=== PATIENT | female | born 1975 ===

== ENCOUNTER 2021-08-07 12:20 | Inpatient (IN) | payer SELFPAY ==
[2021-08-07] MEDS ORDERED: MORPHINE 4 MG/1 ML INJ IV ONE (12:44)
[2021-08-07] MEDS ORDERED: ONDANSETRON 4 MG/2 ML INJ IV ONE (12:44)
[2021-08-07 13:58] LABS: Hematocrit 31.6 % (30.3-42.9); Hemoglobin 11.1 gm/dl (10.1-14.3); Mean Corpuscular HGB Conc 35 % (30-34); Mean Corpuscular Volume 103 fl (79-97); Platelet Count 522 K/mm3 (140-440); Red Blood Count 3.07 M/mm3 (3.65-5.03)
[2021-08-07 14:04] LABS: Red Cell Distribution Width 21.9 % (13.2-15.2)
[2021-08-07 14:09] LABS: INR 1.46 (0.87-1.13)
[2021-08-07 14:22] LABS: Alanine Aminotransferase 11 units/L (7-56); Albumin 2.8 g/dL (3.9-5); BUN/Creatinine Ratio 5; Bilirubin,Direct 4.6 mg/dL (0-0.2); Blood Urea Nitrogen < 1 mg/dL (7-17); Calcium 8.4 mg/dL (8.4-10.2); Hemolysis Index 1
[2021-08-07 14:47] LABS: Basophils % (Manual) 0 % (0.0-1.8); Eosinophils % (Manual) 0 % (0.0-4.3); Total Cells Counted 100
[2021-08-07 14:49] LABS: Target Cells 2+
[2021-08-07 14:50] LABS: Platelet Estimate Consistent w Auto; Schistocytes Few
--- NOTE | 2021-08-07 15:20 | Cat Scan Report ---
CT ABDOMEN AND PELVIS WITH CONTRAST HISTORY: pain. Alcohol abuse, jaundice, generalized abdominal pain COMPARISON: None. TECHNIQUE: CT images of the abdomen and pelvis were obtained following administration of intravenous contrast. All CT scans at this location are performed using CT dose reduction for ALARA by means of automated exposure control. CONTRAST: 100 ml of intravenous contrast administered. FINDINGS: Lungs/bones: Lung bases are clear. Degenerative changes in the spine and pelvis with no acute osseou s abnormality. Abdomen/pelvis: The liver is grossly enlarged and significantly heterogeneous in appearance with sev eral rounded slightly low attenuation masslike structures. The liver is also lobulated. There is mode rate volume ascites. The spleen is normal in size. The main portal vein is also normal in size. 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 The pancreas, adrenals, kidneys, and proximal GI tract appear unremarkable. The urinary bladder and reproductive organs are unremarkable with no acute colonic abnormality identi fied. Occasional diverticula are present without inflammation. There is congestive enteropathy involv ing the ascending colon. IMPRESSION: 1. Grossly abnormal appearance of the liver as outlined above. Differential considerations include no dular regeneration in the setting of cirrhosis versus underlying neoplastic change or even a very unu sual appearance of fatty infiltration. Ultimately tissue sampling may be required for definitive diag nosis. Moderate volume ascites is also present. 2. Porcelain gallbladder. Signer Name: Nabeel Loya MD Signed: 08/07/2021 3:16 PM Workstation Name: [id number]
[2021-08-07] MEDS ORDERED: PIPERACILLIN/TAZOBACTAM 3.375 3.375 GM/50 ML BAG IV ONE (15:32)
[2021-08-07 16:12] LABS: Bilirubin,Urine MOD (Negative); Blood,Urine SM (Negative); Color,Urine Amber (Yellow); Mucus,Urine 3+ /HPF
[2021-08-07 16:16] LABS: HCG Qualitative,Urine Negative (Negative)
[2021-08-07 16:23] LABS: Ictotest,Urine Positive (Negative)
--- NOTE | 2021-08-07 16:46 | History and Physical Report ---
History of Present Illness Chief complaint: My stomach hurts History of present illness: 45 YO Female with ETOH Dependence presents to ED for evaluation. PT reports "my stomach hurts". Patient states that over the past 2 weeks she had experienced abdominal pain and distention with persistent and worsening symptoms over the same timeframe. Patient states that her pain is 4/10, constant, diffuse, without exacerbating or alleviating factors. EMS was notified and upon arrival the patient was found to be in distress and subsequently transported to [facility] for further care and evaluation of the aforementioned symptoms. The patient was seen and evaluated in the emergency department. All lab and imaging studies reviewed. Patient found to have sepsis, alcoholic liver disease, obstructive jaundice, and hyponatremia. Patient admitted to telemetry and initiated on sepsis protocol. Surgical team consulted in ED. GI team consulted in ED. Patient denies fever, chills, chest pain, palpitation, productive cough, skin rash, recent contact, tremors, auditory/visual hallucinations, slurred speech, unilateral leg swelling, calf pain, individual/family history of DVT/PE/bleeding/blood clotting disorders, known exposure to COVID-19. No prior admission for review. No medication listed at time of admission for rec onciliation. Advanced care planning conducted in ED. Past History Past Medical History: other (See HPI) Past Surgical History: No surgical history, Other (Reviewed) Social history: , lives with family, alcohol abuse. denies: smoking, prescription drug abuse Family history: no significant family history Medications and Allergies Allergies Allergy/AdvReac Type Severity Reaction Status Date / Time No Known Allergies Allergy Verified 08/07/21 12:24 Review of Systems Constitutional: no weight loss, no weight gain, no fever, no sweats Ears, nose, mouth and throat: no ear pain, no ear discharge, no decreased hearing, no nose pain, no nasal congestion Breasts: no change in shape, no swelling Cardiovascular: no chest pain, no palpitations, no rapid/irregular heart beat, no edema, no syncope Respiratory: no cough, no cough with sputum, no shortness of breath Gastrointestinal: abdominal pain, nausea, no constipation, no change in bowel habits, no melena, no hematochezia, no loss of appetite Genitourinary Female: no pelvic pain, no flank pain, no dysuria, no urinary frequency, no urgency Rectal: no pain, no incontinence, no bleeding Musculoskeletal: no neck stiffness, no shooting arm pain, no low back pain, no shooting leg pain, no leg numbness/tingling Integumentary: no rash, no redness, no sores, no jaundice, no boils Neurological: no head injury, no transient paralysis, no weakness, no parathesias, no tingling Psychiatric: no anxiety, no change in sleep habits, no sleep disturbances, no hypersomnia, no change in libido Endocrine: no heat intolerance, no polyphagia, no excessive thirst, no polyuria, no nocturia Hematologic/Lymphatic: no easy bruising Allergic/Immunologic: no urticaria, no allergic rhinitis Exam - Constitutional Vitals: Temp Pulse Resp BP Pulse Ox 96 08/07/21 13:40 General appearance: Present: mild distress - EENT Eyes: Present: scleral icterus ENT: hearing intact, clear oral mucosa - Neck Neck: Present: supple, normal ROM - Respiratory Respiratory effort: normal Respiratory: bilateral: CTA - Cardiovascular Heart Sounds: Present: S1 & S2. Absent: rub, click - Extremities Extremities: pulses symmetrical, No edema Peripheral Pulses: within normal limits - Abdominal General gastrointestinal: Present: soft, tender, distended, normal bowel sounds. Absent: splenomegaly, mass Female genitourinary: Present: normal - Integumentary Integumentary: Present: clear, warm, dry - Musculoskeletal Musculoskeletal: generalized weakness - Psychiatric Psychiatric: appropriate mood/affect, intact judgment & insight - Neurologic Neurologic: CNII-XII intact, moves all extremities Results - Labs CBC & Chem 7: 08/07/21 13:32 08/07/21 13:32 Labs: Abnormal lab results 08/07/21 08/07/21 08/07/21 Range/Units 13:32 13:32 13:32 WBC 35.8 H (4.5-11.0) K/mm3 RBC 3.07 L (3.65-5.03) M/mm3 MCV 103 H (79-97) fl MCH 36 H (28-32) pg MCHC 35 H (30-34) % RDW 21.9 H (13.2-15.2) % Plt Count 522 H (140-440) K/mm3 Seg Neuts % (Manual) 97.0 H (40.0-70.0) % Lymphocytes % (Manual) 0 L (13.4-35.0) % Seg Neutrophils # Man 34.7 H (1.8-7.7) K/mm3 Lymphocytes # (Manual) 0.0 L (1.2-5.4) K/mm3 Monocytes # (Manual) 1.1 H (0.0-0.8) K/mm3 PT 19.5 H (12.2-14.9) Sec. INR 1.46 H (0.87-1.13) Sodium 130 L (137-145) mmol/L Chloride 92.7 L (98-107) mmol/L BUN < 1 L (7-17) mg/dL Creatinine 0.2 L (0.6-1.2) mg/dL Glucose 115 H (65-100) mg/dL Total Bilirubin 7.50 H (0.1-1.2) mg/dL Direct Bilirubin 4.6 H (0-0.2) mg/dL AST 113 H (5-40) units/L Alkaline Phosphatase 505 H (35-129) units/L Ammonia (25-60) umol/L Albumin 2.8 L (3.9-5) g/dL Amylase 17 L (27-131) units/L Ur Specific [place] (1.003-1.030) Urine WBC (Auto) (0.0-6.0) /HPF U Epithel Cells (Auto) (0-13.0) /HPF 08/07/21/ Range/Units 13:32 15:49 WBC (4.5-11.0) K/mm3 RBC (3.65-5.03) M/mm3 MCV (79-97) fl MCH (28-32) pg MCHC (30-34) % RDW (13.2-15.2) % Plt Count (140-440) K/mm3 Seg Neuts % (Manual) (40.0-70.0) % Lymphocytes % (Manual) (13.4-35.0) % Seg Neutrophils # Man (1.8-7.7) K/mm3 Lymphocytes # (Manual) (1.2-5.4) K/mm3 Monocytes # (Manual) (0.0-0.8) K/mm3 PT (12.2-14.9) Sec. INR (0.87-1.13) Sodium (137-145) mmol/L Chloride (98-107) mmol/L BUN (7-17) mg/dL Creatinine (0.6-1.2) mg/dL Glucose (65-100) mg/dL Total Bilirubin (0.1-1.2) mg/dL Direct Bilirubin (0-0.2) mg/dL AST (5-40) units/L Alkaline Phosphatase (35-129) units/L Ammonia 66.0 H (25-60) umol/L Albumin (3.9-5) g/dL Amylase (27-131) units/L Ur Specific [place] > 1.059 H (1.003-1.030) Urine WBC (Auto) 17.0 H (0.0-6.0) /HPF U Epithel Cells (Auto) 14.0 H (0-13.0) /HPF Assessment and Plan - Patient Problems (1) Sepsis Current Visit: Yes Status: Acute Plan to address problem: Sepsis protocol: IV antibiotic therapy, IV fluid resuscitation therapy, monitor urine output every shift, maintain mean arterial pressure greater than equal to 65, blood culture, serial lactic acid level. CBC, repeat CBC in a.m. (2) Hyponatremia syndrome Current Visit: Yes Status: Acute Plan to address problem: IV fluid resuscitation therapy, BMP, repeat BMP in a.m. (3) Alcoholic liver disease Current Visit: Yes Status: Acute Plan to address problem: Chronic, supportive care. GI team consulted in ED. (4) Porcelain gallbladder Current Visit: Yes Status: Acute Plan to address problem: Surgery team consulted in ED. Surgical intervention as per surgical team. 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 (5) DVT prophylaxis Current Visit: Yes Status: Acute Plan to address problem: SCD to bilateral lower extremities while in bed (6) Advance care planning Current Visit: Yes Status: Acute Plan to address problem: Disease education data, care plan discussed, diagnoses discussed, prognosis discussed, patient is full code. Patient knowledges understanding agreement with care plan, +30 minutes. (7) Preventative health care Current Visit: Yes Status: Acute Plan to address problem: Patient counseled regarding balanced diet, alcohol cessation, outpatient follow- up with primary care physician for all age and risk factor appropriate screening tests. Patient instructed follow-up with Alcoholics Anonymous at discharge. +30 minutes.
--- NOTE | 2021-08-07 16:52 | Emergency Department Report ---
ED Abdominal Pain HPI - General Chief Complaint: Abdominal Pain Stated Complaint: JAUNDICE,ABD PAIN/DISTENTION Time Seen by Provider: 08/07/21 12:47 Source: patient, EMS Mode of arrival: Stretcher Limitations: Language Barrier - History of Present Illness Initial Comments: PT ARRIVING FROM HOME, FOR JAUNDICE & ABD PAIN/DISTENTION X2 WEEKS. HX ALCOHOL ABUSE. [facility]. 20G L AC. pt is chronically alcoholic , stopped rinking 2 weeks ago, started having jaundice a week ago with abdominal pain MD Complaint: abdominal pain -: days(s) Location: diffuse Severity scale (0 -10): 4 Improves With: nothing Worsens With: nothing Associated Symptoms: nausea, vomiting - Related Data Allergies Allergy/AdvReac Type Severity Reaction Status Date / Time No Known Allergies Allergy Verified 08/07/21 12:24 ED Review of Systems ROS: Stated complaint: JAUNDICE,ABD PAIN/DISTENTION Other details as noted in HPI Comment: language b Constitutional: denies: chills, fever Eyes: denies: eye pain, eye discharge, vision change ENT: denies: ear pain, throat pain Respiratory: denies: cough, shortness of breath, wheezing Cardiovascular: denies: chest pain, palpitations Endocrine: no symptoms reported Gastrointestinal: denies: abdominal pain, nausea, diarrhea Genitourinary: denies: urgency, dysuria, discharge Musculoskeletal: denies: back pain, joint swelling, arthralgia Skin: denies: rash, lesions Neurological: denies: headache, weakness, paresthesias Psychiatric: denies: anxiety, depression Hematological/Lymphatic: denies: easy bleeding, easy bruising ED Past Medical Hx - Past Medical History Previous Medical History?: No - Surgical History Past Surgical History?: No - Social History Smoking Status: Never Smoker Substance Use Type: None ED Physical Exam - General Limitations: Language Barrier General appearance: alert, in distress - Head Head exam: Present: atraumatic, normocephalic - Eye Eye exam: Present: other (jaundice ) - ENT ENT exam: Present: mucous membranes moist - Neck Neck exam: Present: normal inspection - Respiratory Respiratory exam: Present: normal lung sounds bilaterally. Absent: respiratory distress - Cardiovascular Cardiovascular Exam: Present: normal rhythm, tachycardia. Absent: systolic m urmur, diastolic murmur, rubs, gallop - GI/Abdominal GI/Abdominal exam: Present: distended, tenderness, organomegaly, mass - Expanded GI/Abdominal Exam Expanded GI/Abdominal exam: Present: ascites - Extremities Exam Extremities exam: Present: normal inspection - Back Exam Back exam: Present: normal inspection - Neurological Exam Neurological exam: Present: alert, oriented X3 - Psychiatric Psychiatric exam: Present: normal affect, normal mood - Skin Skin exam: Present: warm, dry, intact, normal color. Absent: rash ED Course Vital Signs 08/07/21 13:40 O2 Sat by Pulse 96 Oximetry ED Medical Decision Making - Lab Data Result diagrams: 08/07/21 13:32 08/07/21 13:32 - Radiology Data Radiology results: report reviewed, image reviewed - Medical Decision Making work up showed : - leukocytosis : lactic and blood culture, abx given - Jaundice : seems like direct obstructive or mixed , spoke with GI - Porcalein gall bladder : spoke with dr Zenaida brower Critical care attestation.: If time is entered above; I have spent that time in minutes in the direct care of this critically ill patient, excluding procedure time. ED Disposition Clinical Impression: Alcoholic liver disease, Jaundice, Abdominal pain, Leukocytosis, Porcelain gallbladder, Liver cirrhosis, UTI (urinary tract infection) Disposition: ADMITTED INPATIENT Is pt being admited?: Yes Does the pt Need Aspirin: No Condition: Fair Instructions: Abdominal Pain (ED) Referrals: PRIMARY CARE, [Primary Care Provider] - 3-5 Days
[2021-08-07] MEDS ORDERED: ALBUTEROL 2.5 MG/3 ML NEBU IH PRN (17:04)
[2021-08-07] MEDS ORDERED: ACETAMINOPHEN 325 MG TAB PO PRN (17:04)
[2021-08-07] MEDS ORDERED: ONDANSETRON 4 MG/2 ML INJ IV PRN (17:04)
[2021-08-07] MEDS ORDERED: SODIUM CHLORIDE 0.9% 1000 ML IV SOLN IV ONE (17:04)
[2021-08-07] MEDS ORDERED: IBUPROFEN 600 MG TAB PO PRN (17:04)
[2021-08-07] MEDS ORDERED: DEXTROSE 50% IN WATER (25GM) 50 ML SYRINGE IV PRN (17:10)
[2021-08-07] MEDS: CEFEPIME/NS 2 GM/100 ML 2 GM/100 ML BAG IV SCH (17:32)
--- NOTE | 2021-08-07 18:50 | Consultation ---
History of Present Illness Consult date: 08/07/21 Reason for consult: abdominal pain Chief complaint: abd pain - History of present illness History of present illness: 45 yo F with no PMHx who presents to ER with 1 week of worsening epigastric abdominal pain, abdominal distension and firmness, jaundice. Patient states that the abd pain is sharp and intermittent, localized to the epigastrum and upper abdomen. No alleviating or exacerbating factors. She has never had pain like this before. She also noticed that her abdomen was more distended. In addition, her daughter noted that her eyes were becoming yellow. Patient states she has been urinating and having BMs but it is not as much as usual and the urine is dark. No n/v. No f/c. She was drinking etoh heavily for many months and states she stopped about 2 weeks ago. Pt thought her abdominal pain was related to lifting heavy items at work. Past History Past Medical History: No medical history Past Surgical History: Social history: alcohol abuse Family history: no significant family history Medications and Allergies Allergies Allergy/AdvReac Type Severity Reaction Status Date / Time No Known Allergies Allergy Verified 08/07/21 12:24 Active Meds: Active Medications Acetaminophen (Acetaminophen 325 Mg Tab) 650 mg PO Q6H PRN PRN Reason: Pain, Mild (1-3) Albuterol (Albuterol 2.5 Mg/3 Ml Nebu) 2.5 mg IH Q4HRT PRN PRN Reason: Shortness Of Breath Dextrose (Dextrose 50% In Water (25gm) 50 Ml Syringe) 50 ml IV Q30MIN PRN; Protocol PRN Reason: Hypoglycemia Hydromorphone HCl (Hydromorphone 0.5 Mg/0.5 Ml Inj) 0.25 mg IV Q4H PRN PRN Reason: Pain, Moderate (4-6) Hydromorphone HCl (Hydromorphone 0.5 Mg/0.5 Ml Inj) 0.5 mg IV Q8H PRN PRN Reason: Pain , Severe (7-10) Cefepime HCl (Cefepime/Ns 2 Gm/100 Ml) 2 gm in 100 mls @ 200 mls/hr IV Q8H AILYN; Protocol Last Admin: 08/07/21 17:32 Dose: 200 mls/hr Ibuprofen (Ibuprofen 600 Mg Tab) 600 mg PO Q6H PRN PRN Reason: Pain, Mild (1-3) Insulin Human Regular (Insulin Regular, Human 100 Units/1 Ml) 0 units SUB-Q ACHS AILYN; Protocol Ondansetron HCl (Ondansetron 4 Mg/2 Ml Inj) 4 mg IV Q8H PRN PRN Reason: Nausea And Vomiting Oxycodone/Acetaminophen (Oxycodone /Acetaminophen 5-325mg Tab) 1 tab PO Q6H PRN PRN Reason: Pain, Moderate (4-6) Sodium Chloride (Sodium Chloride 0.9% 10 Ml Flush Syringe) 10 ml IV BID AILYN Sodium Chloride (Sodium Chloride 0.9% 10 Ml Flush Syringe) 10 ml IV PRN PRN PRN Reason: LINE FLUSH Exam Vital Signs Pulse Ox 96 08/07/21 13:40 Narrative exam: Gen: AAOx3. NAD ENT: +scleral icterus CV: S1, S2+ Resp: even and unlabored Abd: soft, distended, epigastric TTP. No r/r/g Ext: no c/c/e Results - Labs 08/07/21 13:32 08/07/21 13:32 Abnormal lab results 08/07/21 08/07/21 08/07/21 Range/Units 13:32 13:32 13:32 WBC 35.8 H (4.5-11.0) K/mm3 RBC 3.07 L (3.65-5.03) M/mm3 MCV 103 H (79-97) fl MCH 36 H (28-32) pg MCHC 35 H (30-34) % RDW 21.9 H (13.2-15.2) % Plt Count 522 H (140-440) K/mm3 Seg Neuts % (Manual) 97.0 H (40.0-70.0) % Lymphocytes % (Manual) 0 L (13.4-35.0) % Seg Neutrophils # Man 34.7 H (1.8-7.7) K/mm3 Lymphocytes # (Manual) 0.0 L (1.2-5.4) K/mm3 Monocytes # (Manual) 1.1 H (0.0-0.8) K/mm3 PT 19.5 H (12.2-14.9) Sec. INR 1.46 H (0.87-1.13) Sodium 130 L (137-145) mmol/L Chloride 92.7 L (98-107) mmol/L BUN < 1 L (7-17) mg/dL Creatinine 0.2 L (0.6-1.2) mg/dL Glucose 115 H (65-100) mg/dL Total Bilirubin 7.50 H (0.1-1.2) mg/dL Direct Bilirubin 4.6 H (0-0.2) mg/dL AST 113 H (5-40) units/L Alkaline Phosphatase 505 H (35-129) units/L Ammonia (25-60) umol/L Albumin 2.8 L (3.9-5) g/dL Amylase 17 L (27-131) units/L Ur Specific [place] (1.003-1.030) Urine WBC (Auto) (0.0-6.0) /HPF U Epithel Cells (Auto) (0-13.0) /HPF 08/07/21 08/07/21 Range/Units 13:32 15:49 WBC (4.5-11.0) K/mm3 RBC (3.65-5.03) M/mm3 MCV (79-97) fl MCH (28-32) pg MCHC (30-34) % RDW (13.2-15.2) % Plt Count (140-440) K/mm3 Seg Neuts % (Manual) (40.0-70.0) % Lymphocytes % (Manual) (13.4-35.0) % Seg Neutrophils # Man (1.8-7.7) K/mm3 Lymphocytes # (Manual) (1.2-5.4) K/mm3 Monocytes # (Manual) (0.0-0.8) K/mm3 PT (12.2-14.9) Sec. INR (0.87-1.13) Sodium (137-145) mmol/L Chloride (98-107) mmol/L BUN (7-17) mg/dL Creatinine (0.6-1.2) mg/dL Glucose (65-100) mg/dL Total Bilirubin (0.1-1.2) mg/dL Direct Bilirubin (0-0.2) mg/dL AST (5-40) units/L Alkaline Phosphatase (35-129) units/L Ammonia 66.0 H (25-60) umol/L Albumin (3.9-5) g/dL Amylase (27-131) units/L Ur Specific [place] > 1.059 H (1.003-1.030) Urine WBC (Auto) 17.0 H (0.0-6.0) /HPF U Epithel Cells (Auto) 14.0 H (0-13.0) /HPF Diabetes panel 08/07/21 Range/Units 13:32 Sodium 130 L (137-145) mmol/L Potassium 3.6 (3.6-5.0) mmol/L Chloride 92.7 L (98-107) mmol/L Carbon Dioxide 26 (22-30) mmol/L BUN < 1 L (7-17) mg/dL Creatinine 0.2 L (0.6-1.2) mg/dL Glucose 115 H (65-100) mg/dL Calcium 8.4 (8.4-10.2) mg/dL AST 113 H (5-40) units/L ALT 11 (7-56) units/L Alkaline Phosphatase 505 H (35-129) units/L Total Protein 7.2 (6.3-8.2) g/dL Albumin 2.8 L (3.9-5) g/dL Calcium panel 08/07/21 Range/Units 13:32 Calcium 8.4 (8.4-10.2) mg/dL Albumin 2.8 L (3.9-5) g/dL Pituitary panel 08/07/21 Range/Units 13:32 Sodium 130 L (137-145) mmol/L Potassium 3.6 (3.6-5.0) mmol/L Chloride 92.7 L (98-107) mmol/L Carbon Dioxide 26 (22-30) mmol/L BUN < 1 L (7-17) mg/dL Creatinine 0.2 L (0.6-1.2) mg/dL Glucose 115 H (65-100) mg/dL Calcium 8.4 (8.4-10.2) mg/dL Adrenal panel 08/07/21 Range/Units 13:32 Sodium 130 L (137-145) mmol/L Potassium 3.6 (3.6-5.0) mmol/L Chloride 92.7 L (98-107) mmol/L Carbon Dioxide 26 (22-30) mmol/L BUN < 1 L (7-17) mg/dL Creatinine 0.2 L (0.6-1.2) mg/dL Glucose 115 H (65-100) mg/dL Calcium 8.4 (8.4-10.2) mg/dL Total Bilirubin 7.50 H (0.1-1.2) mg/dL AST 113 H (5-40) units/L ALT 11 (7-56) units/L Alkaline Phosphatase 505 H (35-129) units/L Total Protein 7.2 (6.3-8.2) g/dL Albumin 2.8 L (3.9-5) g/dL - Imaging CT scan - abdomen: report reviewed, image reviewed CT scan - pelvis: report reviewed, image reviewed Assessment and Plan 45 yo F with 1. porcelain gallbladder 2. abnormal liver on CT scan 3. ascites 4. hyperbilirubinemia, transaminitis 5. jaundice 6. recent hx of etoh abuse Ct A/P images and report independently reviewed Plan: 1. CLD, NPO P MN tonight 2. Obtain MRI abd/MRCP to further evaluate liver and bile ducts 3. tumor markers ordered - CA19-9, CEA 4. CMP, CBC in am 5. empiric abx 6. GI consulted by ER physician 7. No acute surgical intervention at this time. Further recs pending results of above. Thank you, please call with questions.
[2021-08-07] MEDS: HYDROmorphone 0.5 MG/0.5 ML INJ IV PRN (21:51)
[2021-08-07] MEDS: INSULIN REGULAR, HUMAN 100 UNITS/1 ML SUB-Q SCH (23:29)
[2021-08-08] MEDS: CEFEPIME/NS 2 GM/100 ML 2 GM/100 ML BAG IV SCH ×3 (02:04→18:00)
[2021-08-08 05:14] LABS: Hematocrit 32.1 % (30.3-42.9); Hemoglobin 10.4 gm/dl (10.1-14.3); Mean Corpuscular HGB Conc 32 % (30-34); Mean Corpuscular Volume 106 fl (79-97); Platelet Count 476 K/mm3 (140-440); Red Blood Count 3.04 M/mm3 (3.65-5.03)
[2021-08-08 05:18] LABS: Red Cell Distribution Width 21.7 % (13.2-15.2)
[2021-08-08 05:33] LABS: Alanine Aminotransferase 10 units/L (7-56); Albumin 2.6 g/dL (3.9-5); BUN/Creatinine Ratio 10; Blood Urea Nitrogen 2 mg/dL (7-17); Calcium 8.2 mg/dL (8.4-10.2); Hemolysis Index 0
[2021-08-08 07:13] LABS: Anisocytosis 1+; Basophils % (Manual) 0 % (0.0-1.8); Platelet Estimate Consistent w Auto; Total Cells Counted 100
[2021-08-08] MEDS: INSULIN REGULAR, HUMAN 100 UNITS/1 ML SUB-Q SCH ×4 (07:37→21:46)
[2021-08-08] MEDS: HYDROmorphone 0.5 MG/0.5 ML INJ IV PRN ×2 (09:15→14:35)
--- NOTE | 2021-08-08 11:04 | Magnetic Resonance Report ---
MRI ABDOMEN WITHOUT AND WITH CONTRAST INDICATION / CLINICAL INFORMATION: liver lesions Patient had difficulty following breathing instructi ons, best possible study.. TECHNIQUE: Multiplanar, multisequence series were obtained through the abdomen. Pre and postcontrast sequences were obtained. 20 mL MultiHance injected IV. COMPARISON: CT dated 08/07/21. FINDINGS: LOWER CHEST: No significant abnormality. LIVER: Liver is markedly enlarged and heterogeneous. There is diffuse, heterogeneous signal dropout i n the liver on out of phase images. No definite focal solid lesion. Liver is enlarged measuring 24.9 cm in craniocaudad dimension. Liver has a mildly nodular surface. GALLBLADDER: There is low signal of the gallbladder on all sequences corresponding to gallstones and calcified wall noted CT. BILE DUCTS: No significant abnormality. PANCREAS: No significant abnormality. SPLEEN: Spleen is normal size. ADRENALS: No significant abnormality. RIGHT KIDNEY / URETER: No significant abnormality. LEFT KIDNEY / URETER: No significant abnormality. STOMACH / VISUALIZED BOWEL: No significant abnormality. PERITONEUM: Moderate to large amount of free fluid in the abdomen unchanged since prior study. No mabel e air. No fluid collection. LYMPH NODES: No significant adenopathy. AORTA / ARTERIES: No significant abnormality. IVC / VEINS: No significant abnormality. ADDITIONAL FINDINGS: None. SKELETAL SYSTEM: No significant abnormality. IMPRESSION: 1. Hepatomegaly with heterogeneous hepatic steatosis and probable hepatic cirrhosis. No definite foca l or diffuse hepatic neoplastic process. 2. Moderate to large amount of ascites. 3. Cholelithiasis with porcelain gallbladder. Signer Name: Pablito Kirk MD Signed: 08/08/2021 11:00 AM Workstation Name: [id number]
--- NOTE | 2021-08-08 14:05 | Progress Note ---
Assessment and Plan Assessment and plan: #Sepsisimproving WBC 35.8--> 29.7 Pending blood cultures. Unremarkable urinalysis. Continue Rocephin 2 g every 8 hours. Infectious disease consulted; pending recs. Unremarkable lactic acid. Continue to trend CBC daily. #Alcoholic liver disease #Possible hepatic cirrhosis #Hyperbilirubinemia #Elevated transaminasesimproving #Elevated ammonia #Moderate protein caloric malnutrition CT abdomen and pelvis with contrast (08/07/2021) revealing "liver is grossly enlarged and significantly heterogeneous in appearance with several rounded slightly low-attenuation masslike structures. The liver is also lobulated. There is moderate volume ascites. The spleen is normal in size. Main portal vein is also normal in size. Differential considerations include nodular regeneration in the setting of cirrhosis versus underlying neoplastic change or even a very unusual appearance of fatty infiltration. Ultimately tissue sampling may be required for definitive diagnosis. Porcelain gallbladder." MRI abdomen with and without contrast (08/08/2021) revealing "hepatomegaly with heterogeneous hepatic steatosis and probable hepatic cirrhosis. No definite focal diffuse hepatic neoplastic process. Moderate to large amount of ascites. Cholelithiasis with porcelain gallbladder." Total bilirubin 7.5, direct bilirubin 4.6, Ammonia 66, Albumin 2.6 AST 113--> 104 Alkaline phosphatase 505--> 418 General surgery consulted; appreciate recs Gastroenterology consulted; pending recs Ordering paracentesis with lab studies. Continue to trend CMP. #Hyponatremia Sodium 130 Likely secondary to volume overload in the setting of possible cirrhosis with ascites. Continue to monitor. 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 No clinical indication to undergo surgical removal at this point in time. #Coagulopathy INR 1.46 Likely in the setting of possible hepatic cirrhosis. Continue to monitor. #Hypocalcemia Calcium 8.2 Repleted. Continue to monitor. #Alcohol dependence - Counseled patient on the importance of ETOH cessation. Assess patient's current ETOH consumption. Assisted with trying to arrange resources for patient to adequately work towards ETOH cessation. Patient expresses understanding. -Time: +15 mins #Advanced care planning -Disease education conducted, care plan discussed, diagnoses discussed, prognosis discussed, and patient acknowledges understanding with care plan -Time: +30 min Disposition Plan: Continue medical management Total Time Spent with Patient (Minutes): 45 minutes History Interval history: No acute events overnight. Hospitalist Physical - Constitutional Vitals: Temp Pulse Resp BP Pulse Ox 98.4 F 103 H 16 113/66 99 08/08/21 04:22 08/08/21 04:22 08/08/21 04:22 08/08/21 04:22 08/08/21 04:22 General appearance: Present: no acute distress, well-nourished - EENT Eyes: Present: PERRL, EOM intact ENT: hearing intact, clear oral mucosa, dentition normal - Neck Neck: Present: supple, normal ROM - Respiratory Respiratory effort: normal Respiratory: bilateral: CTA - Cardiovascular Rhythm: regular Heart Sounds: Present: S1 & S2 - Extremities Extremities: no ischemia, pulses intact, pulses symmetrical, No edema, normal te mperature, normal color, Full ROM Peripheral Pulses: within normal limits - Abdominal General gastrointestinal: soft, tender (Epigastric and right upper quadrant tenderness), distended (Distended with moderate ascites), normal bowel sounds Localized gastrointestinal: tender: RUQ, epigastric periumbilical - Integumentary Integumentary: Present: clear, warm, dry - Psychiatric Psychiatric: appropriate mood/affect, intact judgment & insight, memory intact, cooperative - Neurologic Neurologic: CNII-XII intact, moves all extremities - Allied Health Allied health notes reviewed: nursing Results - Labs CBC & Chem 7: 08/08/21 04:32 08/08/21 04:32 Labs: Laboratory Last Values WBC 29.7 K/mm3 (4.5-11.0) H 08/08/21 04:32 RBC 3.04 M/mm3 (3.65-5.03) L 08/08/21 04:32 Hgb 10.4 gm/dl (10.1-14.3) 08/08/21 04:32 Hct 32.1 % (30.3-42.9) 08/08/21 04:32 MCV 106 fl (79-97) H 08/08/21 04:32 MCH 34 pg (28-32) H 08/08/21 04:32 MCHC 32 % (30-34) 08/08/21 04:32 RDW 21.7 % (13.2-15.2) H 08/08/21 04:32 Plt Count 476 K/mm3 (140-440) H 08/08/21 04:32 Add Manual Diff Complete 08/08/21 04:32 Total Counted 100 08/08/21 04:32 Seg Neutrophils % Axle Inspector 08/07/21 13:32 Seg Neuts % (Manual) 94.0 % (40.0-70.0) H 08/08/21 04:32 Band Neutrophils % 0 % 08/08/21 04:32 Lymphocytes % (Manual) 3.0 % (13.4-35.0) L 08/08/21 04:32 Reactive Lymphs % (Man) 0 % 08/08/21 04:32 Monocytes % (Manual) 2.0 % (0.0-7.3) 08/08/21 04:32 Eosinophils % (Manual) 1.0 % (0.0-4.3) 08/08/21 04:32 Basophils % (Manual) 0 % (0.0-1.8) 08/08/21 04:32 Metamyelocytes % 0 % 08/08/21 04:32 Myelocytes % 0 % 08/08/21 04:32 Promyelocytes % 0 % 08/08/21 04:32 Blast Cells % 0 % 08/08/21 04:32 Nucleated RBC % Not Reportable 08/08/21 04:32 Seg Neutrophils # Man 27.9 K/mm3 (1.8-7.7) H 08/08/21 04:32 Band Neutrophils # 0.0 K/mm3 08/08/21 04:32 Lymphocytes # (Manual) 0.9 K/mm3 (1.2-5.4) L 08/08/21 04:32 Abs React Lymphs (Man) 0.0 K/mm3 08/08/21 04:32 Monocytes # (Manual) 0.6 K/mm3 (0.0-0.8) 08/08/21 04:32 Eosinophils # (Manual) 0.3 K/mm3 (0.0-0.4) 08/08/21 04:32 Basophils # (Manual) 0.0 K/mm3 (0.0-0.1) 08/08/21 04:32 Metamyelocytes # 0.0 K/mm3 08/08/21 04:32 Myelocytes # 0.0 K/mm3 08/08/21 04:32 Promyelocytes # 0.0 K/mm3 08/08/21 04:32 Blast Cells # 0.0 K/mm3 08/08/21 04:32 WBC Morphology Not Reportable 08/08/21 04:32 Hypersegmented Neuts Not Reportable 08/08/21 04:32 Hyposegmented Neuts Not Reportable 08/08/21 04:32 Hypogranular Neuts Not Reportable 08/08/21 04:32 Smudge Cells Not Reportable 08/08/21 04:32 Toxic Granulation Not Reportable 08/08/21 04:32 Toxic Vacuolation Not Reportable 08/08/21 04:32 Dohle Bodies Not Reportable 08/08/21 04:32 Pelger-Huet Anomaly Not Reportable 08/08/21 04:32 Duncan Rods Not Reportable 08/08/21 04:32 Platelet Estimate Consistent w auto 08/08/21 04:32 Clumped Platelets Not Reportable 08/08/21 04:32 Plt Clumps, EDTA Not Reportable 08/08/21 04:32 Large Platelets Not Reportable 08/08/21 04:32 Giant Platelets Not Reportable 08/08/21 04:32 Platelet Satelliting Not Reportable 08/08/21 04:32 Plt Morphology Comment Not Reportable 08/08/21 04:32 RBC Morphology Not Reportable 08/08/21 04:32 Dimorphic RBCs Not Reportable 08/08/21 04:32 Polychromasia Not Reportable 08/08/21 04:32 Hypochromasia Not Reportable 08/08/21 04:32 Poikilocytosis Not Reportable 08/08/21 04:32 Anisocytosis 1+ 08/08/21 04:32 Microcytosis Not Reportable 08/08/21 04:32 Macrocytosis Not Reportable 08/08/21 04:32 Spherocytes Not Reportable 08/08/21 04:32 Pappenheimer Bodies Not Reportable 08/08/21 04:32 Sickle Cells Not Reportable 08/08/21 04:32 Target Cells Not Reportable 08/08/21 04:32 Tear Drop Cells Not Reportable 08/08/21 04:32 Ovalocytes Not Reportable 08/08/21 04:32 Helmet Cells Not Reportable 08/08/21 04:32 Silva-Custer Bodies Not Reportable 08/08/21 04:32 [place] Rings Not Reportable 08/08/21 04:32 [place] Cells Not Reportable 08/08/21 04:32 Bite Cells Not Reportable 08/08/21 04:32 Crenated Cell Not Reportable 08/08/21 04:32 Elliptocytes Not Reportable 08/08/21 04:32 Acanthocytes (Spur) Not Reportable 08/08/21 04:32 Rouleaux Not Reportable 08/08/21 04:32 Hemoglobin C Crystals Not Reportable 08/08/21 04:32 Schistocytes Not Reportable 08/08/21 04:32 Malaria parasites Not Reportable 08/08/21 04:32 [place] Bodies Not Reportable 08/08/21 04:32 Hem Pathologist Commnt No 08/08/21 04:32 PT 19.5 Sec. (12.2-14.9) H 08/07/21 13:32 INR 1.46 (0.87-1.13) H 08/07/21 13:32 Sodium 130 mmol/L (137-145) L 08/08/21 04:32 Potassium 3.6 mmol/L (3.6-5.0) 08/08/21 04:32 Chloride 95.2 mmol/L (98-107) L 08/08/21 04:32 Carbon Dioxide 25 mmol/L (22-30) 08/08/21 04:32 Anion Gap 13 mmol/L 08/08/21 04:32 BUN 2 mg/dL (7-17) L 08/08/21 04:32 Creatinine 0.2 mg/dL (0.6-1.2) L 08/08/21 04:32 Estimated GFR > 60 ml/min 08/08/21 04:32 BUN/Creatinine Ratio 10 % 08/08/21 04:32 Glucose 91 mg/dL (65-100) 08/08/21 04:32 POC Glucose 97 mg/dL (70-105) 08/07/21 22:16 Lactic Acid 1.80 mmol/L (0.7-2.0) 08/07/21 22:28 Calcium 8.2 mg/dL (8.4-10.2) L 08/08/21 04:32 Total Bilirubin 8.00 mg/dL (0.1-1.2) H 08/08/21 04:32 Direct Bilirubin 4.6 mg/dL (0-0.2) H 08/07/21 13:32 Indirect Bilirubin 2.9 mg/dL 08/07/21 13:32 AST 104 units/L (5-40) H 08/08/21 04:32 ALT 10 units/L (7-56) 08/08/21 04:32 Alkaline Phosphatase 418 units/L (35-129) H 08/08/21 04:32 Ammonia 66.0 umol/L (25-60) H 08/07/21 13:32 Total Protein 6.3 g/dL (6.3-8.2) 08/08/21 04:32 Albumin 2.6 g/dL (3.9-5) L 08/08/21 04:32 Albumin/Globulin Ratio 0.7 % 08/08/21 04:32 Amylase 17 units/L (27-131) L 08/07/21 13:32 Lipase 13 units/L (13-60) 08/07/21 13:32 HCG, Quant < 2 mIU/mL (0-4) 08/07/21 13:32 Urine Color Nancy (Yellow) 08/07/21 15:49 Urine Turbidity Clear (Clear) 08/07/21 15:49 Urine pH 5.0 (5.0-7.0) 08/07/21 15:49 Ur Specific [place] > 1.059 (1.003-1.030) H 08/07/21 15:49 Urine Protein 30 mg/dl mg/dL (Negative) 08/07/21 15:49 Urine Glucose (UA) 50 mg/dL (Negative) 08/07/21 15:49 Urine Ketones Neg mg/dL (Negative) 08/07/21 15:49 Urine Blood Sm (Negative) 08/07/21 15:49 Urine Nitrite Neg (Negative) 08/07/21 15:49 Urine Bilirubin Mod (Negative) 08/07/21 15:49 Urine Ictotest Positive (Negative) 08/07/21 15:49 Urine Urobilinogen 4.0 mg/dL (<2.0) 08/07/21 15:49 Ur Leukocyte Esterase Neg (Negative) 08/07/21 15:49 Urine WBC (Auto) 17.0 /HPF (0.0-6.0) H 08/07/21 15:49 Urine RBC (Auto) 17.0 /HPF (0.0-6.0) 08/07/21 15:49 U Epithel Cells (Auto) 14.0 /HPF (0-13.0) H 08/07/21 15:49 Urine Mucus 3+ /HPF 08/07/21 15:49 Urine HCG, Qual Negative (Negative) 08/07/21 15:49 Plasma/Serum Alcohol < 0.01 % (0-0.07) 08/07/21 14:36 Blood Type A POSITIVE 08/07/21 20:14 Antibody Screen Negative 08/07/21 20:14 Microbiology: Microbiology 08/07/21 14:36 Peripheral/Venous Blood Culture - Preliminary Culture in Progress 08/07/21 14:36 Peripheral/Venous Blood Culture - Preliminary Culture in Progress Streeter/IV: Voiding Method Toilet Active Medications - Current Medications Current Medications: Generic Name Dose Route Start Last Admin Trade Name Freq PRN Reason Stop Dose Admin Acetaminophen 650 mg 08/07/21 17:04 08/07/21 22:20 Acetaminophen 325 Mg Tab PO 650 mg Q6H PRN Administration Pain, Mild (1-3) Albuterol 2.5 mg 08/07/21 17:04 Albuterol 2.5 Mg/3 Ml Nebu IH Q4HRT PRN Shortness Of Breath Dextrose 50 ml 08/07/21 17:10 Dextrose 50% In Water (25gm) 50 Ml Syringe IV Q30MIN PRN Hypoglycemia Protocol Hydromorphone HCl 0.25 mg 08/07/21 17:04 08/07/21 21:51 Hydromorphone 0.5 Mg/0.5 Ml Inj IV 0.25 mg Q4H PRN Administration Pain, Moderate (4-6) Hydromorphone HCl 0.5 mg 08/07/21 17:04 08/08/21 09:15 Hydromorphone 0.5 Mg/0.5 Ml Inj IV 0.5 mg Q8H PRN Administration Pain , Severe (7-10) Cefepime HCl 2 gm in 100 mls @ 200 mls/hr 08/07/21 18:00 08/08/21 05:08 Cefepime/Ns 2 Gm/100 Ml IV Infused Q8H AILYN Infusion Protocol Ibuprofen 600 mg 08/07/21 17:04 Ibuprofen 600 Mg Tab PO Q6H PRN Pain, Mild (1-3) Insulin Human Regular 0 units 08/07/21 22:00 08/07/21 23:29 Insulin Regular, Human 100 Units/1 Ml SUB-Q Not Given ACHS [facility] Protocol Ondansetron HCl 4 mg 08/07/21 17:04 Ondansetron 4 Mg/2 Ml Inj IV Q8H PRN Nausea And Vomiting Oxycodone/Acetaminophen 1 tab 08/07/21 17:04 Oxycodone /Acetaminophen 5-325mg Tab PO Q6H PRN Pain, Moderate (4-6) Sodium Chloride 10 ml 08/07/21 22:00 08/07/21 22:05 Sodium Chloride 0.9% 10 Ml Flush Syringe IV 10 ml BID AILYN Administration Sodium Chloride 10 ml 08/07/21 17:04 Sodium Chloride 0.9% 10 Ml Flush Syringe IV PRN PRN LINE FLUSH
--- NOTE | 2021-08-08 17:07 | Event Note ---
Date: 08/08/21 Full GI consult dictated - probable alcohol abuse with ascites and imaging suspicion for cirrhosis - also noted signs Porcelain GB - agree with emperic antibiotics - awaiting LVP and results - consider low dose diuretics after lvp - await surgery input regarding porcelain gb - will follow
[2021-08-09] MEDS: CEFEPIME/NS 2 GM/100 ML 2 GM/100 ML BAG IV SCH ×3 (01:56→18:42)
--- NOTE | 2021-08-09 04:18 | Consultation ---
DATE OF CONSULTATION: 08/08/2021 REFERRING PHYSICIAN: Fatimah Pereira MD INDICATIONS: 1. Cirrhosis. 2. Abdominal pain. HISTORY OF PRESENT ILLNESS: The patient is a 45-year-old female with history of chronic alcohol abuse, now presents for abdominal pain and distention. The patient reports that she has been having this abdominal pain with distention, which has been ongoing for the last 3 to 4 weeks. She does report a history of chronic alcohol abuse. The patient denies any nausea, vomiting or hematemesis. She denies any bright red blood per rectum. She does report some leg swelling. The patient came to the Emergency Room for further evaluation and was admitted and GI consulted to aid in management. No other specific complaints. PAST MEDICAL HISTORY: Alcohol abuse. MEDICATIONS: Reviewed and updated in chart. ALLERGIES: No known drug allergies. SOCIAL HISTORY: Reports alcohol abuse. Denies smoking or prescription drug abuse. FAMILY HISTORY: Negative for colon cancer, IBD, or liver disease. REVIEW OF SYSTEMS: GENERAL: Reports some weakness. HEENT: No visual complaints or tinnitus. PULMONARY: Reports some shortness of breath. CARDIOVASCULAR: Denies chest pain. GASTROINTESTINAL: Reports abdominal distention. All points of 13-point review of system otherwise negative. PHYSICAL EXAMINATION: VITAL SIGNS: Temperature of 98.4, pulse 100, respirations 18, blood pressure 113/66. GENERAL: Somewhat weak, thin-appearing female, in mild distress. HEENT: Pupils equal, round and reactive. Sclerae icteric. PULMONARY: Rhonchi. CARDIOVASCULAR: Regular rate and rhythm. Normal S1, S2. ABDOMEN: Distended, soft, positive fluid wave. SKIN: No obvious rashes. LABORATORY DATA: Pertinent for white count of 29.7, hemoglobin and hematocrit of 10.4 and 31.2, platelet count of 476. Chem-7, sodium of 130, potassium 3.6, chloride 95, CO2 of 25, BUN and creatinine of 2 and 0.2, AST and ALT of 104 and 10 with a total bilirubin of 8 and an alkaline phosphatase of 418. CT abdomen and pelvis with contrast performed on 08/07/2021 showed a grossly abnormal appearance of the liver, raising the possibility of cirrhosis versus underlying neoplastic process with noted moderate volume ascites. Also, noted a porcelain gallbladder. MRI, MRCP performed on 08/07/2021 showed hepatomegaly with signs of steatosis and probable hepatic cirrhosis with no definitive focal or neoplastic process. Moderate to large volume ascites and cholelithiasis with porcelain gallbladder. ASSESSMENT: A 45-year-old female with history of chronic alcohol abuse, presents with abdominal distention and discomfort with imaging showing porcelain gallbladder with cholelithiasis and also noted signs of cirrhosis. CT scan raised the possibility of a mass which was not confirmed on MRI. Concern for patient with alcohol abuse, now with cirrhosis and ascites, but also concern for possible porcelain gallbladder, raising the possibility of gallbladder malignancy or other pathology. Management as noted below. PLAN: 1. We will review imaging as noted above. 2. Large volume paracentesis while sending fluid for different studies. 3. We will order tumor markers including CA 99 and CEA as well as AFP. 4. Continue empiric antibiotics for possible SBP. 5. Start diuretics to aid in diuresis. 6. Alcohol abstinence and consider CIWA protocol as necessary. 7. Await further surgery input regarding the need for surgery. 8. We will follow further recommendation based on progress. TID: [id number] RECEIPT: [id number] CAB/RES/ISIDRA/NIS
[2021-08-09 05:49] LABS: Hematocrit 30.1 % (30.3-42.9); Hemoglobin 10.1 gm/dl (10.1-14.3); Mean Corpuscular HGB Conc 34 % (30-34); Mean Corpuscular Volume 105 fl (79-97); Platelet Count 404 K/mm3 (140-440); Red Blood Count 2.87 M/mm3 (3.65-5.03)
[2021-08-09 05:51] LABS: Red Cell Distribution Width 21.9 % (13.2-15.2)
[2021-08-09 06:15] LABS: Alanine Aminotransferase 9 units/L (7-56); Albumin 2.4 g/dL (3.9-5); Blood Urea Nitrogen 3 mg/dL (7-17); Calcium 8.2 mg/dL (8.4-10.2); Hemolysis Index 8
[2021-08-09 06:23] LABS: BUN/Creatinine Ratio 15
[2021-08-09 06:42] LABS: Anisocytosis 1+; Basophils % (Manual) 0 % (0.0-1.8); Monocytes % (Manual) 0 % (0.0-7.3); Platelet Estimate Consistent w Auto; Target Cells 1+; Total Cells Counted 100
[2021-08-09] MEDS: HYDROmorphone 0.5 MG/0.5 ML INJ IV PRN ×2 (07:39→11:58)
[2021-08-09] MEDS: INSULIN REGULAR, HUMAN 100 UNITS/1 ML SUB-Q SCH ×4 (08:06→22:00)
--- NOTE | 2021-08-09 08:49 | Progress Note ---
Assessment and Plan Assessment and plan: #Sepsisimproving WBC 29.0 Blood cultures collected, NG x 24hrs. Unremarkable urinalysis. -likely secondary to porcelain gallbladder vs SBP -pending ascitic fluid cultures and studies from paracentesis today -continue cefepime, flagyl added by ID -Infectious disease following, assistance appreciated #Alcoholic liver disease #Possible hepatic cirrhosis #Hyperbilirubinemia #Elevated transaminasesimproving #Elevated ammonia #Moderate protein caloric malnutrition CT abdomen and pelvis with contrast (08/07/2021) revealing "liver is grossly enlarged and significantly heterogeneous in appearance with several rounded slightly low-attenuation masslike structures. The liver is also lobulated. There is moderate volume ascites. The spleen is normal in size. Main portal vein is also normal in size. Differential considerations include nodular regeneration in the setting of cirrhosis versus underlying neoplastic change or even a very unusual appearance of fatty infiltration. Ultimately tissue sampling may be required for definitive diagnosis. Porcelain gallbladder." MRI abdomen with and without contrast (08/08/2021) revealing "hepatomegaly with heterogeneous hepatic steatosis and probable hepatic cirrhosis. No definite focal diffuse hepatic neoplastic process. Moderate to large amount of ascites. Cholelithiasis with porcelain gallbladder." Total bilirubin 7.9; will continue to trend CMP -MELD 22 General surgery consulted and signed off; recommends no surgical intervention at this time Gastroenterology following, assistance appreciated Diagnostic/theraputic paracentesis ordered with lab studies #Hyponatremia Sodium 131 Likely secondary to volume overload in the setting of possible cirrhosis with ascites. Continue to monitor. 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 No clinical indication to undergo surgical removal at this point in time. #Coagulopathy INR 1.46, will continue to monitor Likely in the setting of possible hepatic cirrhosis #Hypocalcemia -will replete and monitor #Alcohol dependence - Counseled patient on the importance of ETOH cessation. Assess patient's current ETOH consumption. Assisted with trying to arrange resources for patient to adequately work towards ETOH cessation. Patient expresses understanding. -Time: +15 mins #Advanced care planning -Disease education conducted, care plan discussed, diagnoses discussed, prognosis discussed, and patient acknowledges understanding with care plan -Time: +30 min History Interval history: No acute events overnight. The patient denies N/V/D. She did have abdominal pain that was relieved with PRN medications. She has no complaints at this time and is awaiting paracentesis. Hospitalist Physical - Physical exam Narrative exam: GENERAL: Well-developed well-nourished. In no acute distress. HEENT: Jaundice. NECK: Supple. CHEST/LUNGS: CTAB on room air HEART/CARDIOVASCULAR: Tachycardic. No murmur, rubs or gallops appreciated. ABDOMEN: +BS. NT. Distended with increased vascularity. SKIN: No rashes noted. NEURO: No focal motor deficit. Follows all commands. MUSCULOSKELETAL: No joint effusion EXTREMITIES: No cyanosis, cubbing or edema. PSYCH: Cooperative. - Constitutional Vitals: Temp Pulse Resp BP Pulse Ox 99.1 F 115 H 16 124/69 100 08/09/21 03:37 08/09/21 03:37 08/09/21 03:37 08/09/21 03:37 08/09/21 08:00 General appearance: Present: no acute distress, well-nourished Results - Labs CBC & Chem 7: 08/09/21 05:32 08/09/21 05:32 Labs: Laboratory Last Values WBC 29.0 K/mm3 (4.5-11.0) H 08/09/21 05:32 RBC 2.87 M/mm3 (3.65-5.03) L 08/09/21 05:32 Hgb 10.1 gm/dl (10.1-14.3) 08/09/21 05:32 Hct 30.1 % (30.3-42.9) L 08/09/21 05:32 MCV 105 fl (79-97) H 08/09/21 05:32 MCH 35 pg (28-32) H 08/09/21 05:32 MCHC 34 % (30-34) 08/09/21 05:32 RDW 21.9 % (13.2-15.2) H 08/09/21 05:32 Plt Count 404 K/mm3 (140-440) 08/09/21 05:32 Add Manual Diff Complete 08/09/21 05:32 Total Counted 100 08/09/21 05:32 Seg Neutrophils % Personal Property Appraiser 08/07/21 13:32 Seg Neuts % (Manual) 99.0 % (40.0-70.0) H 08/09/21 05:32 Band Neutrophils % 0 % 08/09/21 05:32 Lymphocytes % (Manual) 0 % (13.4-35.0) L 08/09/21 05:32 Reactive Lymphs % (Man) 0 % 08/09/21 05:32 Monocytes % (Manual) 0 % (0.0-7.3) 08/09/21 05:32 Eosinophils % (Manual) 1.0 % (0.0-4.3) 08/09/21 05:32 Basophils % (Manual) 0 % (0.0-1.8) 08/09/21 05:32 Metamyelocytes % 0 % 08/09/21 05:32 Myelocytes % 0 % 08/09/21 05:32 Promyelocytes % 0 % 08/09/21 05:32 Blast Cells % 0 % 08/09/21 05:32 Nucleated RBC % Not Reportable 08/09/21 05:32 Seg Neutrophils # Man 28.7 K/mm3 (1.8-7.7) H 08/09/21 05:32 Band Neutrophils # 0.0 K/mm3 08/09/21 05:32 Lymphocytes # (Manual) 0.0 K/mm3 (1.2-5.4) L 08/09/21 05:32 Abs React Lymphs (Man) 0.0 K/mm3 08/09/21 05:32 Monocytes # (Manual) 0.0 K/mm3 (0.0-0.8) 08/09/21 05:32 Eosinophils # (Manual) 0.3 K/mm3 (0.0-0.4) 08/09/21 05:32 Basophils # (Manual) 0.0 K/mm3 (0.0-0.1) 08/09/21 05:32 Metamyelocytes # 0.0 K/mm3 08/09/21 05:32 Myelocytes # 0.0 K/mm3 08/09/21 05:32 Promyelocytes # 0.0 K/mm3 08/09/21 05:32 Blast Cells # 0.0 K/mm3 08/09/21 05:32 WBC Morphology Not Reportable 08/09/21 05:32 Hypersegmented Neuts Not Reportable 08/09/21 05:32 Hyposegmented Neuts Not Reportable 08/09/21 05:32 Hypogranular Neuts Not Reportable 08/09/21 05:32 Smudge Cells Not Reportable 08/09/21 05:32 Toxic Granulation Not Reportable 08/09/21 05:32 Toxic Vacuolation Not Reportable 08/09/21 05:32 Dohle Bodies Not Reportable 08/09/21 05:32 Pelger-Huet Anomaly Not Reportable 08/09/21 05:32 [place] Rods Not Reportable 08/09/21 05:32 Platelet Estimate Consistent w auto 08/09/21 05:32 Clumped Platelets Not Reportable 08/09/21 05:32 Plt Clumps, EDTA Not Reportable 08/09/21 05:32 Large Platelets Not Reportable 08/09/21 05:32 Giant Platelets Not Reportable 08/09/21 05:32 Platelet Satelliting Not Reportable 08/09/21 05:32 Plt Morphology Comment Not Reportable 08/09/21 05:32 RBC Morphology Not Reportable 08/09/21 05:32 Dimorphic RBCs Not Reportable 08/09/21 05:32 Polychromasia Not Reportable 08/09/21 05:32 Hypochromasia Not Reportable 08/09/21 05:32 Poikilocytosis Not Reportable 08/09/21 05:32 Anisocytosis 1+ 08/09/21 05:32 Microcytosis Not Reportable 08/09/21 05:32 Macrocytosis Not Reportable 08/09/21 05:32 Spherocytes Not Reportable 08/09/21 05:32 Pappenheimer Bodies Not Reportable 08/09/21 05:32 Sickle Cells Not Reportable 08/09/21 05:32 Target Cells 1+ 08/09/21 05:32 Tear Drop Cells Not Reportable 08/09/21 05:32 Ovalocytes Not Reportable 08/09/21 05:32 Helmet Cells Not Reportable 08/09/21 05:32 Silva-[place] Bodies Not Reportable 08/09/21 05:32 [place] Rings Not Reportable 08/09/21 05:32 [place] Cells Not Reportable 08/09/21 05:32 Bite Cells Not Reportable 08/09/21 05:32 Crenated Cell Not Reportable 08/09/21 05:32 Elliptocytes Not Reportable 08/09/21 05:32 Acanthocytes (Spur) Not Reportable 08/09/21 05:32 Rouleaux Not Reportable 08/09/21 05:32 Hemoglobin C Crystals Not Reportable 08/09/21 05:32 Schistocytes Not Reportable 08/09/21 05:32 Malaria parasites Not Reportable 08/09/21 05:32 [place] Bodies Not Reportable 08/09/21 05:32 Hem Pathologist Commnt No 08/09/21 05:32 PT 19.5 Sec. (12.2-14.9) H 08/07/21 13:32 INR 1.46 (0.87-1.13) H 08/07/21 13:32 Sodium 131 mmol/L (137-145) L 08/09/21 05:32 Potassium 4.0 mmol/L (3.6-5.0) 08/09/21 05:32 Chloride 95.3 mmol/L (98-107) L 08/09/21 05:32 Carbon Dioxide 26 mmol/L (22-30) 08/09/21 05:32 Anion Gap 14 mmol/L 08/09/21 05:32 BUN 3 mg/dL (7-17) L 08/09/21 05:32 Creatinine 0.2 mg/dL (0.6-1.2) L 08/09/21 05:32 Estimated GFR > 60 ml/min 08/09/21 05:32 BUN/Creatinine Ratio 15 % 08/09/21 05:32 Glucose 97 mg/dL (65-100) 08/09/21 05:32 POC Glucose 109 mg/dL (70-105) H 08/09/21 07:41 Lactic Acid 1.80 mmol/L (0.7-2.0) 08/07/21 22:28 Calcium 8.2 mg/dL (8.4-10.2) L 08/09/21 05:32 Phosphorus 2.60 mg/dL (2.5-4.5) 08/09/21 05:32 Magnesium 1.70 mg/dL (1.7-2.3) 08/09/21 05:32 Total Bilirubin 7.90 mg/dL (0.1-1.2) H 08/09/21 05:32 Direct Bilirubin 4.6 mg/dL (0-0.2) H 08/07/21 13:32 Indirect Bilirubin 2.9 mg/dL 08/07/21 13:32 AST 113 units/L (5-40) H 08/09/21 05:32 ALT 9 units/L (7-56) 08/09/21 05:32 Alkaline Phosphatase 374 units/L (35-129) H 08/09/21 05:32 Ammonia 66.0 umol/L (25-60) H 08/07/21 13:32 Total Protein 6.1 g/dL (6.3-8.2) L 08/09/21 05:32 Albumin 2.4 g/dL (3.9-5) L 08/09/21 05:32 Albumin/Globulin Ratio 0.6 % 08/09/21 05:32 Amylase 17 units/L (27-131) L 08/07/21 13:32 Lipase 13 units/L (13-60) 08/07/21 13:32 HCG, Quant < 2 mIU/mL (0-4) 08/07/21 13:32 Urine Color Nancy (Yellow) 08/07/21 15:49 Urine Turbidity Clear (Clear) 08/07/21 15:49 Urine pH 5.0 (5.0-7.0) 08/07/21 15:49 Ur Specific [place] > 1.059 (1.003-1.030) H 08/07/21 15:49 Urine Protein 30 mg/dl mg/dL (Negative) 08/07/21 15:49 Urine Glucose (UA) 50 mg/dL (Negative) 08/07/21 15:49 Urine Ketones Neg mg/dL (Negative) 08/07/21 15:49 Urine Blood Sm (Negative) 08/07/21 15:49 Urine Nitrite Neg (Negative) 08/07/21 15:49 Urine Bilirubin Mod (Negative) 08/07/21 15:49 Urine Ictotest Positive (Negative) 08/07/21 15:49 Urine Urobilinogen 4.0 mg/dL (<2.0) 08/07/21 15:49 Ur Leukocyte Esterase Neg (Negative) 08/07/21 15:49 Urine WBC (Auto) 17.0 /HPF (0.0-6.0) H 08/07/21 15:49 Urine RBC (Auto) 17.0 /HPF (0.0-6.0) 08/07/21 15:49 U Epithel Cells (Auto) 14.0 /HPF (0-13.0) H 08/07/21 15:49 Urine Mucus 3+ /HPF 08/07/21 15:49 Urine HCG, Qual Negative (Negative) 08/07/21 15:49 Plasma/Serum Alcohol < 0.01 % (0-0.07) 08/07/21 14:36 Blood Type A POSITIVE 08/07/21 20:14 Antibody Screen Negative 08/07/21 20:14 Microbiology: Microbiology 08/07/21 14:36 Peripheral/Venous Blood Culture - Preliminary NO GROWTH AFTER 24 HOURS 08/07/21 14:36 Peripheral/Venous Blood Culture - Preliminary NO GROWTH AFTER 24 HOURS Streeter/IV: Voiding Method Toilet Active Medications - Current Medications Current Medications: Generic Name Dose Route Start Last Admin Trade Name Freq PRN Reason Stop Dose Admin Acetaminophen 650 mg 08/07/21 17:04 08/07/21 22:20 Acetaminophen 325 Mg Tab PO 650 mg Q6H PRN Administration Pain, Mild (1-3) Albuterol 2.5 mg 08/07/21 17:04 Albuterol 2.5 Mg/3 Ml Nebu IH Q4HRT PRN Shortness Of Breath Dextrose 50 ml 08/07/21 17:10 Dextrose 50% In Water (25gm) 50 Ml Syringe IV Q30MIN PRN Hypoglycemia Protocol Hydromorphone HCl 0.25 mg 08/07/21 17:04 08/08/21 14:35 Hydromorphone 0.5 Mg/0.5 Ml Inj IV 0.25 mg Q4H PRN Administration Pain, Moderate (4-6) Hydromorphone HCl 0.5 mg 08/07/21 17:04 08/09/21 07:39 Hydromorphone 0.5 Mg/0.5 Ml Inj IV 0.5 mg Q8H PRN Administration Pain , Severe (7-10) Cefepime HCl 2 gm in 100 mls @ 200 mls/hr 08/07/21 18:00 08/09/21 01:56 Cefepime/Ns 2 Gm/100 Ml IV 100 mls/hr Q8H AILYN Administration Protocol Ibuprofen 600 mg 08/07/21 17:04 Ibuprofen 600 Mg Tab PO Q6H PRN Pain, Mild (1-3) Insulin Human Regular 0 units 08/07/21 22:00 08/09/21 08:06 Insulin Regular, Human 100 Units/1 Ml SUB-Q Not Given ACHS COUNTS INCLUDE 234 BEDS AT THE [facility] Protocol Ondansetron HCl 4 mg 08/07/21 17:04 Ondansetron 4 Mg/2 Ml Inj IV Q8H PRN Nausea And Vomiting Oxycodone/Acetaminophen 1 tab 08/07/21 17:04 Oxycodone /Acetaminophen 5-325mg Tab PO Q6H PRN Pain, Moderate (4-6) Sodium Chloride 10 ml 08/07/21 22:00 08/08/21 21:47 Sodium Chloride 0.9% 10 Ml Flush Syringe IV 10 ml BID AILYN Administration Sodium Chloride 10 ml 08/07/21 17:04 Sodium Chloride 0.9% 10 Ml Flush Syringe IV PRN PRN LINE FLUSH
--- NOTE | 2021-08-09 10:30 | Consultation ---
History of Present Illness - Reason for Consult Consult date: 08/09/21 - History of Present Illness 45-year-old female past medical history alcohol dependence presented to the hospital complaining of abdominal pain. This began approximately 2 weeks prior to admission and associated with distention and worsening symptoms since onset. Her family noted jaundice of the eyes. Afebrile, white count 36 on admission, improving now 29. Blood cultures no growth so far. She is tachycardic. Currently on cefepime. Imaging personally reviewed: CT abdomen pelvis: Possible cirrhosis versus neoplastic change in the liver. Porcelain gallbladder Abdominal MRI: Cholelithiasis with porcelain gallbladder Review of Systems: Bold if positive, otherwise negative General: fevers, chills, rigors HEENT: visual disturbance, diplopia, eye pain Respiratory: cough, sputum, hemoptysis, shortness of breath Cardiovascular: chest pain, syncope Gastrointestinal: nausea, vomiting, diarrhea, abdominal pain Genitourinary: dysuria, hematuria, flank pain Musculoskeletal: neck pain, back pain, joint pain, edema Neurologic: headaches, seizures Hematologic: easy bruising or bleeding Endocrine: night sweats, acute weight loss Skin: rash, jaundice, redness Psychiatric: suicidal, homicidal ideation Past History Past Medical History: other (See HPI) Past Surgical History: No surgical history, Other (Reviewed) Social history: , lives with family, alcohol abuse. denies: smoking, prescription drug abuse Family history: no significant family history Medications and Allergies Allergies Allergy/AdvReac Type Severity Reaction Status Date / Time No Known Allergies Allergy Verified 08/07/21 12:24 Active Meds: Active Medications Acetaminophen (Acetaminophen 325 Mg Tab) 650 mg PO Q6H PRN PRN Reason: Pain, Mild (1-3) Last Admin: 08/07/21 22:20 Dose: 650 mg Albuterol (Albuterol 2.5 Mg/3 Ml Nebu) 2.5 mg IH Q4HRT PRN PRN Reason: Shortness Of Breath Dextrose (Dextrose 50% In Water (25gm) 50 Ml Syringe) 50 ml IV Q30MIN PRN; Protocol PRN Reason: Hypoglycemia Hydromorphone HCl (Hydromorphone 0.5 Mg/0.5 Ml Inj) 0.25 mg IV Q4H PRN PRN Reason: Pain, Moderate (4-6) Last Admin: 08/08/21 14:35 Dose: 0.25 mg Hydromorphone HCl (Hydromorphone 0.5 Mg/0.5 Ml Inj) 0.5 mg IV Q8H PRN PRN Reason: Pain , Severe (7-10) Last Admin: 08/09/21 07:39 Dose: 0.5 mg Cefepime HCl (Cefepime/Ns 2 Gm/100 Ml) 2 gm in 100 mls @ 200 mls/hr IV Q8H AILYN; Protocol Last Admin: 08/09/21 01:56 Dose: 100 mls/hr Ibuprofen (Ibuprofen 600 Mg Tab) 600 mg PO Q6H PRN PRN Reason: Pain, Mild (1-3) Insulin Human Regular (Insulin Regular, Human 100 Units/1 Ml) 0 units SUB-Q ACHS [facility]; Protocol Last Admin: 08/09/21 08:06 Dose: Not Given Ondansetron HCl (Ondansetron 4 Mg/2 Ml Inj) 4 mg IV Q8H PRN PRN Reason: Nausea And Vomiting Oxycodone/Acetaminophen (Oxycodone /Acetaminophen 5-325mg Tab) 1 tab PO Q6H PRN PRN Reason: Pain, Moderate (4-6) Sodium Chloride (Sodium Chloride 0.9% 10 Ml Flush Syringe) 10 ml IV BID [facility] Last Admin: 08/08/21 21:47 Dose: 10 ml Sodium Chloride (Sodium Chloride 0.9% 10 Ml Flush Syringe) 10 ml IV PRN PRN PRN Reason: LINE FLUSH Physical Examination - Physical Exam Narrative exam: Physical Exam: Constitutional: Alert, cooperative. No acute distress Head, Ears, Nose: Normocephalic, atraumatic. External ears, nose normal Eyes: icterus Neck: Supple, no meningeal signs Oral: dentition fair, no thrush Cardiovascular: S1, S2 normal. Respiratory: Good air entry, clear to auscultation bilaterally GI: soft, distended Musculoskeletal: No pedal edema, no cyanosis. Skin: No rash or abscess Hem/Lymphatic: No palpable cervical or supraclavicular nodes. No lymphangitis Psych: Mood ok. Affect normal Neurological: Awake, alert, oriented. No gross abnormality - Constitutional Vitals: Vital Signs Temp Pulse Resp BP Pulse Ox 98.5 F 107 H 18 111/72 96 08/09/21 08:12 08/09/21 08:12 08/09/21 08:12 08/09/21 08:12 08/09/21 09:56 Temperature -Last 24 Hours Temperature 98.5 F Temperature 99.1 F Temperature 98.4 F Temperature 97.8 F Temperature 98.5 F Results - Labs CBC & Chem 7: 08/09/21 05:32 08/09/21 05:32 Labs: Abnormal lab results 08/09/21 08/09/21 08/09/21 Range/Units 05:32 05:32 07:41 WBC 29.0 H (4.5-11.0) K/mm3 RBC 2.87 L (3.65-5.03) M/mm3 Hct 30.1 L (30.3-42.9) % MCV 105 H (79-97) fl MCH 35 H (28-32) pg RDW 21.9 H (13.2-15.2) % Seg Neuts % (Manual) 99.0 H (40.0-70.0) % Lymphocytes % (Manual) 0 L (13.4-35.0) % Seg Neutrophils # Man 28.7 H (1.8-7.7) K/mm3 Lymphocytes # (Manual) 0.0 L (1.2-5.4) K/mm3 Sodium 131 L (137-145) mmol/L Chloride 95.3 L (98-107) mmol/L BUN 3 L (7-17) mg/dL Creatinine 0.2 L (0.6-1.2) mg/dL POC Glucose 109 H (70-105) mg/dL Calcium 8.2 L (8.4-10.2) mg/dL Total Bilirubin 7.90 H (0.1-1.2) mg/dL AST 113 H (5-40) units/L Alkaline Phosphatase 374 H (35-129) units/L Total Protein 6.1 L (6.3-8.2) g/dL Albumin 2.4 L (3.9-5) g/dL Assessment and Plan Cultures: Blood culture no growth so far A/P: 44-year-old female past medical history alcohol abuse now with #SIRS/sepsis: With leukocytosis, tachycardia. May be reactive to porcelain gallbladder and lack of other infectious source seen. Await blood culture finalization, given possible cirrhosis could have gram-negative bacteremia. 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 metronidazole -Follow-up blood cultures Thank you for the consult, we will continue to follow. Raciel Brunner MD [facility] O: [phone] F: [phone]
[2021-08-09] MEDS ORDERED: LIDOCAINE (1%) 10 MG/1 ML VIAL 20 ML MDV ONE (11:27)
--- NOTE | 2021-08-09 11:37 | Event Note ---
Date: 08/09/21 Pt off floor for procedure. Chart reviewed. 45 yo F with 1. porcelain gallbladder 2. cirrhosis 3. ascites 4. hyperbilirubinemia, transaminitis 5. jaundice 6. recent hx of etoh abuse MRI abd reviewed. Plan: 1. Reg diet 2. GI recs reviewed 3. Porcelain GB is an incidental finding and does not cause acute infection. As patient with newly diagnosed uncompensated liver disease, would not recommend surgical intervention for gallbladder at this time. Recommend surveillance at this time and may follow up for CCY when liver failure is compensated. Currently MELD is 24 and patient is a Child Biggs class C - high risk periop mortality for abdominal surgery Will s/o Thank you, please call with questions.
[2021-08-09] MEDS: oxyCODONE /ACETAMINOPHEN 5-325MG TAB PO PRN ×2 (15:31→21:12)
--- NOTE | 2021-08-09 15:41 | Gastroenterology Progress Note ---
Assessment and Plan 1. Liver: acute alcohol hepatitis w/ ascites s/p paraenthesis - pt DF 39 -awaiting fluid studies, continue emperic antibiotics - start Prednisolone -low Na diet - consider diuretics based on progress - alcohol cessation - egd as outpt - surgery input noted - ifr stable in am, may be able to dc - will follow Subjective Date of service: 08/09/21 Interval history: pt reports feeling much better after paracenthesis. Denies specific GI complaints Objective - Constitutional Vitals: Temp Pulse Resp BP Pulse Ox 98.5 F 107 H 18 111/72 96 08/09/21 08:12 08/09/21 08:12 08/09/21 08:12 08/09/21 08:12 08/09/21 09:56 General appearance: no acute distress - EENT Eyes: PERRL, scleral icterus - Respiratory Respiratory: bilateral: CTA - Cardiovascular Rhythm: regular Heart Sounds: Present: S1 & S2 - Gastrointestinal General gastrointestinal: Present: soft, non-tender, non-distended - Labs CBC & Chem 7: 08/09/21 05:32 08/09/21 05:32 Labs: Laboratory Results - last 24 hr 08/08/21 08/09/21 08/09/21 21:35 05:32 05:32 WBC 29.0 H RBC 2.87 L Hgb 10.1 Hct 30.1 L MCV 105 H MCH 35 H MCHC 34 RDW 21.9 H Plt Count 404 Add Manual Diff Complete Total Counted 100 Seg Neuts % (Manual) 99.0 H Band Neutrophils % 0 Lymphocytes % (Manual) 0 L Reactive Lymphs % (Man) 0 Monocytes % (Manual) 0 Eosinophils % (Manual) 1.0 Basophils % (Manual) 0 Metamyelocytes % 0 Myelocytes % 0 Promyelocytes % 0 Blast Cells % 0 Nucleated RBC % Not Reportable Seg Neutrophils # Man 28.7 H Band Neutrophils # 0.0 Lymphocytes # (Manual) 0.0 L Abs React Lymphs (Man) 0.0 Monocytes # (Manual) 0.0 Eosinophils # (Manual) 0.3 Basophils # (Manual) 0.0 Metamyelocytes # 0.0 Myelocytes # 0.0 Promyelocytes # 0.0 Blast Cells # 0.0 WBC Morphology Not Reportable Hypersegmented Neuts Not Reportable Hyposegmented Neuts Not Reportable Hypogranular Neuts Not Reportable Smudge Cells Not Reportable Toxic Granulation Not Reportable Toxic Vacuolation Not Reportable Dohle Bodies Not Reportable Pelger-Huet Anomaly Not Reportable [place] Rods Not Reportable Platelet Estimate Consistent w auto Clumped Platelets Not Reportable Plt Clumps, EDTA Not Reportable Large Platelets Not Reportable Giant Platelets Not Reportable Platelet Satelliting Not Reportable Plt Morphology Comment Not Reportable RBC Morphology Not Reportable Dimorphic RBCs Not Reportable Polychromasia Not Reportable Hypochromasia Not Reportable Poikilocytosis Not Reportable Anisocytosis 1+ Microcytosis Not Reportable Macrocytosis Not Reportable Spherocytes Not Reportable Pappenheimer Bodies Not Reportable Sickle Cells Not Reportable Target Cells 1+ Tear Drop Cells Not Reportable Ovalocytes Not Reportable Helmet Cells Not Reportable [place] Bodies Not Reportable [place] Rings Not Reportable Humbird Cells Not Reportable Bite Cells Not Reportable Crenated Cell Not Reportable Elliptocytes Not Reportable Acanthocytes (Spur) Not Reportable Rouleaux Not Reportable Hemoglobin C Crystals Not Reportable Schistocytes Not Reportable Malaria parasites Not Reportable [place] Bodies Not Reportable Hem Pathologist Commnt No Sodium 131 L Potassium 4.0 Chloride 95.3 L Carbon Dioxide 26 Anion Gap 14 BUN 3 L Creatinine 0.2 L Estimated GFR > 60 BUN/Creatinine Ratio 15 Glucose 97 POC Glucose 94 Calcium 8.2 L Phosphorus 2.60 Magnesium 1.70 Total Bilirubin 7.90 H AST 113 H ALT 9 Alkaline Phosphatase 374 H Total Protein 6.1 L Albumin 2.4 L Albumin/Globulin Ratio 0.6 08/09/21 07:41 WBC RBC Hgb Hct MCV MCH MCHC RDW Plt Count Add Manual Diff Total Counted Seg Neuts % (Manual) Band Neutrophils % Lymphocytes % (Manual) Reactive Lymphs % (Man) Monocytes % (Manual) Eosinophils % (Manual) Basophils % (Manual) Metamyelocytes % Myelocytes % Promyelocytes % Blast Cells % Nucleated RBC % Seg Neutrophils # Man Band Neutrophils # Lymphocytes # (Manual) Abs React Lymphs (Man) Monocytes # (Manual) Eosinophils # (Manual) Basophils # (Manual) Metamyelocytes # Myelocytes # Promyelocytes # Blast Cells # WBC Morphology Hypersegmented Neuts Hyposegmented Neuts Hypogranular Neuts Smudge Cells Toxic Granulation Toxic Vacuolation Dohle Bodies Pelger-Huet Anomaly [place] Rods Platelet Estimate Clumped Platelets Plt Clumps, EDTA Large Platelets Giant Platelets Platelet Satelliting Plt Morphology Comment RBC Morphology Dimorphic RBCs Polychromasia Hypochromasia Poikilocytosis Anisocytosis Microcytosis Macrocytosis Spherocytes Pappenheimer Bodies Sickle Cells Target Cells Tear Drop Cells Ovalocytes Helmet Cells [place] Bodies Titus Rings Mami Cells Bite Cells Crenated Cell Elliptocytes Acanthocytes (Spur) Rouleaux Hemoglobin C Crystals Schistocytes Malaria parasites [place] Bodies Hem Pathologist Commnt Sodium Potassium Chloride Carbon Dioxide Anion Gap BUN Creatinine Estimated GFR BUN/Creatinine Ratio Glucose POC Glucose 109 H Calcium Phosphorus Magnesium Total Bilirubin AST ALT Alkaline Phosphatase Total Protein Albumin Albumin/Globulin Ratio
--- NOTE | 2021-08-09 16:13 | Ultrasound Report ---
ULTRASOUND-GUIDED PARACENTESIS INDICATION: Cirrhosis, ascites Procedure was discussed in advance with the patient including possible risks and benefits. Opportunit y for questions was given. Patient is not on anticoagulant therapy and has no pertinent allergies. Timeout was performed. Sonography was used to localize a suitable pocket of ascites in the right lowe r quadrant. Under local anesthesia and aseptic technique, this collection was accessed using a 5 Fren ch Yueh catheter. Due to the proximity of the inferior tip of the enlarged liver to this best accessi ble pocket of fluid, the catheter insertion was performed under direct sonographic guidance. 4800 cc of clear yellowish ascitic fluid were withdrawn by vacuum aspiration with an initial 60 cc sent for o rdered laboratory analysis. The catheter was removed and the site was secured. Patient tolerated the procedure well and left the department for the floor in satisfactory condition. IMPRESSION: Successful ultrasound-guided paracentesis Signer Name: Sravan Ramos MD Signed: 08/09/2021 4:08 PM Workstation Name: [id number]
[2021-08-10] MEDS: CEFEPIME/NS 2 GM/100 ML 2 GM/100 ML BAG IV SCH ×3 (02:17→19:45)
[2021-08-10 05:32] LABS: Hematocrit 31.6 % (30.3-42.9); Hemoglobin 10.5 gm/dl (10.1-14.3); Mean Corpuscular HGB Conc 33 % (30-34); Mean Corpuscular Volume 106 fl (79-97); Platelet Count 345 K/mm3 (140-440); Red Blood Count 2.98 M/mm3 (3.65-5.03)
[2021-08-10 05:41] LABS: INR 1.5 (0.87-1.13)
[2021-08-10 05:51] LABS: Alanine Aminotransferase 9 units/L (7-56); Albumin 2.4 g/dL (3.9-5); Blood Urea Nitrogen 3 mg/dL (7-17); Calcium 8.2 mg/dL (8.4-10.2); Hemolysis Index 6
[2021-08-10 06:05] LABS: BUN/Creatinine Ratio 15
[2021-08-10 06:46] LABS: Red Cell Distribution Width 21.9 % (13.2-15.2)
[2021-08-10] MEDS: INSULIN REGULAR, HUMAN 100 UNITS/1 ML SUB-Q SCH ×4 (09:24→21:56)
[2021-08-10] MEDS: metroNIDAZOLE 500 MG TAB PO SCH ×3 (09:27→21:52)
[2021-08-10] MEDS: oxyCODONE /ACETAMINOPHEN 5-325MG TAB PO PRN ×2 (10:45→19:51)
--- NOTE | 2021-08-10 13:30 | Progress Note ---
Assessment and Plan Cultures: Blood culture no growth so far A/P: 44-year-old female past medical history alcohol abuse now with #SIRS/sepsis: With leukocytosis, tachycardia. May be reactive to porcelain gallbladder and lack of other infectious source seen. Await blood culture finalization, given possible cirrhosis could have gram-negative bacteremia. 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 metronidazole -Follow-up blood cultures Thank you for the consult, we will continue to follow. Raciel Brunner MD [facility] ([facility]) O: [phone] F: [phone] Subjective Date of service: 08/10/21 Interval history: Afebrile, White count 30.3. Cultures remain negative. Objective - Exam Narrative Exam: Physical Exam: Constitutional: Alert, cooperative. No acute distress Head, Ears, Nose: Normocephalic, atraumatic. External ears, nose normal Eyes: icterus Neck: Supple, no meningeal signs Oral: dentition fair, no thrush Cardiovascular: S1, S2 normal. Respiratory: Good air entry, clear to auscultation bilaterally GI: soft, distended Musculoskeletal: No pedal edema, no cyanosis. Skin: No rash or abscess Hem/Lymphatic: No palpable cervical or supraclavicular nodes. No lymphangitis Psych: Mood ok. Affect normal Neurological: Awake, alert, oriented. No gross abnormality - Constitutional Vitals: Vital Signs Temp Pulse Resp BP Pulse Ox 98.7 F 105 H 18 116/78 100 08/10/21 08:16 08/10/21 03:41 08/10/21 08:16 08/10/21 08:16 08/10/21 09:33 Temperature -Last 24 Hours Temperature 98.7 F Temperature 99.2 F Temperature 98.0 F Temperature 98.0 F Temperature 98.0 F - Labs CBC & Chem 7: 08/10/21 04:40 08/10/21 04:40 Labs: Abnormal lab results 08/09/21 08/10/21 08/10/21 Range/Units 16:15 04:40 04:40 WBC 30.3 H (4.5-11.0) K/mm3 RBC 2.98 L (3.65-5.03) M/mm3 MCV 106 H (79-97) fl MCH 35 H (28-32) pg RDW 21.9 H (13.2-15.2) % PT 19.9 H (12.2-14.9) Sec. INR 1.50 H (0.87-1.13) Sodium (137-145) mmol/L Chloride (98-107) mmol/L BUN (7-17) mg/dL Creatinine (0.6-1.2) mg/dL POC Glucose 126 H (70-105) mg/dL Calcium (8.4-10.2) mg/dL Total Bilirubin (0.1-1.2) mg/dL AST (5-40) units/L Alkaline Phosphatase (35-129) units/L Albumin (3.9-5) g/dL 08/10/21 Range/Units 04:40 WBC (4.5-11.0) K/mm3 RBC (3.65-5.03) M/mm3 MCV (79-97) fl MCH (28-32) pg RDW (13.2-15.2) % PT (12.2-14.9) Sec. INR (0.87-1.13) Sodium 126 L (137-145) mmol/L Chloride 93.5 L (98-107) mmol/L BUN 3 L (7-17) mg/dL Creatinine < 0.2 L (0.6-1.2) mg/dL POC Glucose (70-105) mg/dL Calcium 8.2 L (8.4-10.2) mg/dL Total Bilirubin 8.30 H (0.1-1.2) mg/dL AST 102 H (5-40) units/L Alkaline Phosphatase 407 H (35-129) units/L Albumin 2.4 L (3.9-5) g/dL
[2021-08-10 14:39] LABS: Hepatitis B Surface Antigen Non-Reactive (Negative); Hepatitis C Virus Antibody Non-Reactive (NonReactive)
--- NOTE | 2021-08-10 14:43 | Progress Note ---
Assessment and Plan Assessment and plan: #Sepsisimproving WBC stable Blood cultures collected, NG x 48hrs. Unremarkable urinalysis. -likely secondary to porcelain gallbladder vs SBP -pending ascitic fluid cultures and studies pending -continue cefepime, flagyl -Infectious disease following, assistance appreciated #Alcoholic liver disease #hepatic cirrhosis #possible alcoholic hepatitis #Hyperbilirubinemia #Elevated transaminasesimproving #Elevated ammonia #Moderate protein caloric malnutrition CT abdomen and pelvis with contrast (08/07/2021) revealing "liver is grossly enlarged and significantly heterogeneous in appearance with several rounded slightly low-attenuation masslike structures. The liver is also lobulated. There is moderate volume ascites. The spleen is normal in size. Main portal vein is also normal in size. Differential considerations include nodular regeneration in the setting of cirrhosis versus underlying neoplastic change or even a very unusual appearance of fatty infiltration. Ultimately tissue sampling may be required for definitive diagnosis. Porcelain gallbladder." MRI abdomen with and without contrast (08/08/2021) revealing "hepatomegaly with heterogeneous hepatic steatosis and probable hepatic cirrhosis. No definite focal diffuse hepatic neoplastic process. Moderate to large amount of ascites. Cholelithiasis with porcelain gallbladder." Total bilirubin 8; will continue to trend CMP -MELD 22; Maddrey's 31 today; prednisolone started -Hepatitis panel negative -4.8L of fluid removed from paracentesis General surgery consulted and signed off; recommends no surgical intervention at this time Gastroenterology following, assistance appreciated #Hyponatremia Likely secondary to volume overload in the setting of possible cirrhosis with ascites. Continue to monitor. 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 No clinical indication to undergo surgical removal at this point in time. #Coagulopathy will continue to monitor Likely in the setting of possible hepatic cirrhosis #Hypocalcemia -will replete and monitor #Alcohol dependence - Counseled patient on the importance of ETOH cessation. Assess patient's current ETOH consumption. Assisted with trying to arrange resources for patient to adequately work towards ETOH cessation. Patient expresses understanding. -Time: +15 mins #Advanced care planning -Disease education conducted, care plan discussed, diagnoses discussed, prognosis discussed, and patient acknowledges understanding with care plan -Time: +30 min History Interval history: No acute events overnight. The patient denies N/V/D. She reports improvement in bloating. She has no other complaints at this time. Hospitalist Physical - Physical exam Narrative exam: GENERAL: Well-developed well-nourished. In no acute distress. HEENT: Jaundice. NECK: Supple. CHEST/LUNGS: CTAB on room air HEART/CARDIOVASCULAR: Tachycardic. No murmur, rubs or gallops appreciated. ABDOMEN: +BS. NT. Improvement in distended with increased vascularity. NEURO: No focal motor deficit. Follows all commands. MUSCULOSKELETAL: No joint effusion EXTREMITIES: No cyanosis, clubbing or edema. PSYCH: Cooperative. - Constitutional Vitals: Temp Pulse Resp BP Pulse Ox 98.0 F 110 H 18 116/69 95 08/10/21 12:13 08/10/21 12:13 08/10/21 12:13 08/10/21 12:13 08/10/21 12:13 General appearance: Present: no acute distress, well-nourished Results - Labs CBC & Chem 7: 08/10/21 04:40 08/10/21 04:40 Labs: Laboratory Last Values WBC 30.3 K/mm3 (4.5-11.0) H 08/10/21 04:40 RBC 2.98 M/mm3 (3.65-5.03) L 08/10/21 04:40 Hgb 10.5 gm/dl (10.1-14.3) 08/10/21 04:40 Hct 31.6 % (30.3-42.9) 08/10/21 04:40 MCV 106 fl (79-97) H 08/10/21 04:40 MCH 35 pg (28-32) H 08/10/21 04:40 MCHC 33 % (30-34) 08/10/21 04:40 RDW 21.9 % (13.2-15.2) H 08/10/21 04:40 Plt Count 345 K/mm3 (140-440) 08/10/21 04:40 Add Manual Diff Complete 08/09/21 05:32 Total Counted 100 08/09/21 05:32 Seg Neutrophils % Bearing Press Machine Operator 08/07/21 13:32 Seg Neuts % (Manual) 99.0 % (40.0-70.0) H 08/09/21 05:32 Band Neutrophils % 0 % 08/09/21 05:32 Lymphocytes % (Manual) 0 % (13.4-35.0) L 08/09/21 05:32 Reactive Lymphs % (Man) 0 % 08/09/21 05:32 Monocytes % (Manual) 0 % (0.0-7.3) 08/09/21 05:32 Eosinophils % (Manual) 1.0 % (0.0-4.3) 08/09/21 05:32 Basophils % (Manual) 0 % (0.0-1.8) 08/09/21 05:32 Metamyelocytes % 0 % 08/09/21 05:32 Myelocytes % 0 % 08/09/21 05:32 Promyelocytes % 0 % 08/09/21 05:32 Blast Cells % 0 % 08/09/21 05:32 Nucleated RBC % Not Reportable 08/09/21 05:32 Seg Neutrophils # Man 28.7 K/mm3 (1.8-7.7) H 08/09/21 05:32 Band Neutrophils # 0.0 K/mm3 08/09/21 05:32 Lymphocytes # (Manual) 0.0 K/mm3 (1.2-5.4) L 08/09/21 05:32 Abs React Lymphs (Man) 0.0 K/mm3 08/09/21 05:32 Monocytes # (Manual) 0.0 K/mm3 (0.0-0.8) 08/09/21 05:32 Eosinophils # (Manual) 0.3 K/mm3 (0.0-0.4) 08/09/21 05:32 Basophils # (Manual) 0.0 K/mm3 (0.0-0.1) 08/09/21 05:32 Metamyelocytes # 0.0 K/mm3 08/09/21 05:32 Myelocytes # 0.0 K/mm3 08/09/21 05:32 Promyelocytes # 0.0 K/mm3 08/09/21 05:32 Blast Cells # 0.0 K/mm3 08/09/21 05:32 WBC Morphology Not Reportable 08/09/21 05:32 Hypersegmented Neuts Not Reportable 08/09/21 05:32 Hyposegmented Neuts Not Reportable 08/09/21 05:32 Hypogranular Neuts Not Reportable 08/09/21 05:32 Smudge Cells Not Reportable 08/09/21 05:32 Toxic Granulation Not Reportable 08/09/21 05:32 Toxic Vacuolation Not Reportable 08/09/21 05:32 Dohle Bodies Not Reportable 08/09/21 05:32 Pelger-Huet Anomaly Not Reportable 08/09/21 05:32 Duncan Rods Not Reportable 08/09/21 05:32 Platelet Estimate Consistent w auto 08/09/21 05:32 Clumped Platelets Not Reportable 08/09/21 05:32 Plt Clumps, EDTA Not Reportable 08/09/21 05:32 Large Platelets Not Reportable 08/09/21 05:32 Giant Platelets Not Reportable 08/09/21 05:32 Platelet Satelliting Not Reportable 08/09/21 05:32 Plt Morphology Comment Not Reportable 08/09/21 05:32 RBC Morphology Not Reportable 08/09/21 05:32 Dimorphic RBCs Not Reportable 08/09/21 05:32 Polychromasia Not Reportable 08/09/21 05:32 Hypochromasia Not Reportable 08/09/21 05:32 Poikilocytosis Not Reportable 08/09/21 05:32 Anisocytosis 1+ 08/09/21 05:32 Microcytosis Not Reportable 08/09/21 05:32 Macrocytosis Not Reportable 08/09/21 05:32 Spherocytes Not Reportable 08/09/21 05:32 Pappenheimer Bodies Not Reportable 08/09/21 05:32 Sickle Cells Not Reportable 08/09/21 05:32 Target Cells 1+ 08/09/21 05:32 Tear Drop Cells Not Reportable 08/09/21 05:32 Ovalocytes Not Reportable 08/09/21 05:32 Helmet Cells Not Reportable 08/09/21 05:32 [place] Bodies Not Reportable 08/09/21 05:32 [place] Rings Not Reportable 08/09/21 05:32 Mami Cells Not Reportable 08/09/21 05:32 Bite Cells Not Reportable 08/09/21 05:32 Crenated Cell Not Reportable 08/09/21 05:32 Elliptocytes Not Reportable 08/09/21 05:32 Acanthocytes (Spur) Not Reportable 08/09/21 05:32 Rouleaux Not Reportable 08/09/21 05:32 Hemoglobin C Crystals Not Reportable 08/09/21 05:32 Schistocytes Not Reportable 08/09/21 05:32 Malaria parasites Not Reportable 08/09/21 05:32 [place] Bodies Not Reportable 08/09/21 05:32 Hem Pathologist Commnt No 08/09/21 05:32 PT 19.9 Sec. (12.2-14.9) H 08/10/21 04:40 INR 1.50 (0.87-1.13) H 08/10/21 04:40 Sodium 126 mmol/L (137-145) L 08/10/21 04:40 Potassium 4.6 mmol/L (3.6-5.0) 08/10/21 04:40 Chloride 93.5 mmol/L (98-107) L 08/10/21 04:40 Carbon Dioxide 23 mmol/L (22-30) 08/10/21 04:40 Anion Gap 14 mmol/L 08/10/21 04:40 BUN 3 mg/dL (7-17) L 08/10/21 04:40 Creatinine < 0.2 mg/dL (0.6-1.2) L 08/10/21 04:40 Estimated GFR > 60 ml/min 08/10/21 04:40 BUN/Creatinine Ratio 15 % 08/10/21 04:40 Glucose 95 mg/dL (65-100) 08/10/21 04:40 POC Glucose 87 mg/dL (70-105) 08/10/21 08:47 Lactic Acid 1.80 mmol/L (0.7-2.0) 08/07/21 22:28 Calcium 8.2 mg/dL (8.4-10.2) L 08/10/21 04:40 Phosphorus 2.60 mg/dL (2.5-4.5) 08/09/21 05:32 Magnesium 1.70 mg/dL (1.7-2.3) 08/09/21 05:32 Total Bilirubin 8.30 mg/dL (0.1-1.2) H 08/10/21 04:40 Direct Bilirubin 4.6 mg/dL (0-0.2) H 08/07/21 13:32 Indirect Bilirubin 2.9 mg/dL 08/07/21 13:32 AST 102 units/L (5-40) H 08/10/21 04:40 ALT 9 units/L (7-56) 08/10/21 04:40 Alkaline Phosphatase 407 units/L (35-129) H 08/10/21 04:40 Ammonia 66.0 umol/L (25-60) H 08/07/21 13:32 Total Protein 6.3 g/dL (6.3-8.2) 08/10/21 04:40 Albumin 2.4 g/dL (3.9-5) L 08/10/21 04:40 Albumin/Globulin Ratio 0.6 % 08/10/21 04:40 Amylase 17 units/L (27-131) L 08/07/21 13:32 Lipase 13 units/L (13-60) 08/07/21 13:32 HCG, Quant < 2 mIU/mL (0-4) 08/07/21 13:32 Urine Color Nancy (Yellow) 08/07/21 15:49 Urine Turbidity Clear (Clear) 08/07/21 15:49 Urine pH 5.0 (5.0-7.0) 08/07/21 15:49 Ur Specific [place] > 1.059 (1.003-1.030) H 08/07/21 15:49 Urine Protein 30 mg/dl mg/dL (Negative) 08/07/21 15:49 Urine Glucose (UA) 50 mg/dL (Negative) 08/07/21 15:49 Urine Ketones Neg mg/dL (Negative) 08/07/21 15:49 Urine Blood Sm (Negative) 08/07/21 15:49 Urine Nitrite Neg (Negative) 08/07/21 15:49 Urine Bilirubin Mod (Negative) 08/07/21 15:49 Urine Ictotest Positive (Negative) 08/07/21 15:49 Urine Urobilinogen 4.0 mg/dL (<2.0) 08/07/21 15:49 Ur Leukocyte Esterase Neg (Negative) 08/07/21 15:49 Urine WBC (Auto) 17.0 /HPF (0.0-6.0) H 08/07/21 15:49 Urine RBC (Auto) 17.0 /HPF (0.0-6.0) 08/07/21 15:49 U Epithel Cells (Auto) 14.0 /HPF (0-13.0) H 08/07/21 15:49 Urine Mucus 3+ /HPF 08/07/21 15:49 Urine HCG, Qual Negative (Negative) 08/07/21 15:49 Plasma/Serum Alcohol < 0.01 % (0-0.07) 08/07/21 14:36 Hepatitis A IgM Ab Non-reactive (NonReactive) 08/10/21 10:10 Hep Bs Antigen Non-reactive (Negative) 08/10/21 10:10 Hep B Core IgM Ab Non-reactive (NonReactive) 08/10/21 10:10 Hepatitis C Antibody Non-reactive (NonReactive) 08/10/21 10:10 Blood Type A POSITIVE 08/07/21 20:14 Antibody Screen Negative 08/07/21 20:14 Microbiology: Microbiology 08/07/21 15:49 Urine,Clean Catch Urine Culture - Final 08/07/21 14:36 Peripheral/Venous Blood Culture - Preliminary NO GROWTH AFTER 48 HOURS 08/07/21 14:36 Peripheral/Venous Blood Culture - Preliminary NO GROWTH AFTER 48 HOURS Streeter/IV: Voiding Method Toilet Active Medications - Current Medications Current Medications: Generic Name Dose Route Start Last Admin Trade Name Freq PRN Reason Stop Dose Admin Acetaminophen 650 mg 08/07/21 17:04 08/07/21 22:20 Acetaminophen 325 Mg Tab PO 650 mg Q6H PRN Administration Pain, Mild (1-3) Albuterol 2.5 mg 08/07/21 17:04 Albuterol 2.5 Mg/3 Ml Nebu IH Q4HRT PRN Shortness Of Breath Dextrose 50 ml 08/07/21 17:10 Dextrose 50% In Water (25gm) 50 Ml Syringe IV Q30MIN PRN Hypoglycemia Protocol Hydromorphone HCl 0.25 mg 08/07/21 17:04 08/09/21 11:58 Hydromorphone 0.5 Mg/0.5 Ml Inj IV 0.25 mg Q4H PRN Administration Pain, Moderate (4-6) Hydromorphone HCl 0.5 mg 08/07/21 17:04 08/09/21 07:39 Hydromorphone 0.5 Mg/0.5 Ml Inj IV 0.5 mg Q8H PRN Administration Pain , Severe (7-10) Cefepime HCl 2 gm in 100 mls @ 200 mls/hr 08/07/21 18:00 08/10/21 10:28 Cefepime/Ns 2 Gm/100 Ml IV 100 mls/hr Q8H AILYN Administration Protocol Ibuprofen 600 mg 08/07/21 17:04 Ibuprofen 600 Mg Tab PO Q6H PRN Pain, Mild (1-3) Insulin Human Regular 0 units 08/07/21 22:00 08/10/21 09:24 Insulin Regular, Human 100 Units/1 Ml SUB-Q Not Given ACHS AILYN Protocol Metronidazole 500 mg 08/10/21 08:00 08/10/21 09:27 Metronidazole 500 Mg Tab PO 500 mg Q8HR [facility] Administration Protocol Ondansetron HCl 4 mg 08/07/21 17:04 Ondansetron 4 Mg/2 Ml Inj IV Q8H PRN Nausea And Vomiting Oxycodone/Acetaminophen 1 tab 08/07/21 17:04 08/10/21 10:45 Oxycodone /Acetaminophen 5-325mg Tab PO 1 tab Q6H PRN Administration Pain, Moderate (4-6) Prednisolone Sodium Phosphate 40 mg 08/10/21 10:00 Prednisolone Sod Phosphate 15 Mg/5 Ml Oral Liqd PO QDAY AILYN Sodium Chloride 10 ml 08/07/21 22:00 08/10/21 11:26 Sodium Chloride 0.9% 10 Ml Flush Syringe IV 10 ml BID AILYN Administration Sodium Chloride 10 ml 08/07/21 17:04 08/09/21 12:30 Sodium Chloride 0.9% 10 Ml Flush Syringe IV 10 ml PRN PRN Administration LINE FLUSH
[2021-08-10] MEDS: HYDROmorphone 0.5 MG/0.5 ML INJ IV PRN (16:35)
[2021-08-10] MEDS: prednisoLONE SOD PHOSPHATE 15 MG/5 ML ORAL LIQD PO SCH (19:55)
--- NOTE | 2021-08-10 22:18 | Gastroenterology Progress Note ---
Assessment and Plan 1. 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 - if stable in am, may be able to dc - will follow Subjective Date of service: 08/10/21 Interval history: - reports feeling better, denies specific GI complaints Objective - Constitutional Vitals: Temp Pulse Resp BP Pulse Ox 98.6 F 100 H 18 113/72 98 08/10/21 20:27 08/10/21 20:27 08/10/21 20:27 08/10/21 20:27 08/10/21 20:37 General appearance: no acute distress - EENT Eyes: PERRL - Respiratory Respiratory: bilateral: CTA - Cardiovascular Rhythm: regular Heart Sounds: Present: S1 & S2 - Gastrointestinal General gastrointestinal: Present: soft, non-tender, non-distended - Labs CBC & Chem 7: 08/10/21 04:40 08/10/21 04:40 Labs: Laboratory Results - last 24 hr 08/10/21 08/10/21 08/10/21 04:40 04:40 04:40 WBC 30.3 H RBC 2.98 L Hgb 10.5 Hct 31.6 MCV 106 H MCH 35 H MCHC 33 RDW 21.9 H Plt Count 345 PT 19.9 H INR 1.50 H Sodium 126 L Potassium 4.6 Chloride 93.5 L Carbon Dioxide 23 Anion Gap 14 BUN 3 L Creatinine < 0.2 L Estimated GFR > 60 BUN/Creatinine Ratio 15 Glucose 95 POC Glucose Calcium 8.2 L Total Bilirubin 8.30 H AST 102 H ALT 9 Alkaline Phosphatase 407 H Total Protein 6.3 Albumin 2.4 L Albumin/Globulin Ratio 0.6 Hepatitis A IgM Ab Hep Bs Antigen Hep B Core IgM Ab Hepatitis C Antibody 08/10/21 08/10/21 08/10/21 08:47 10:10 21:35 WBC RBC Hgb Hct MCV MCH MCHC RDW Plt Count PT INR Sodium Potassium Chloride Carbon Dioxide Anion Gap BUN Creatinine Estimated GFR BUN/Creatinine Ratio Glucose POC Glucose 87 119 H Calcium Total Bilirubin AST ALT Alkaline Phosphatase Total Protein Albumin Albumin/Globulin Ratio Hepatitis A IgM Ab Non-reactive Hep Bs Antigen Non-reactive Hep B Core IgM Ab Non-reactive Hepatitis C Antibody Non-reactive
[2021-08-11] MEDS: CEFEPIME/NS 2 GM/100 ML 2 GM/100 ML BAG IV SCH ×2 (03:17→09:36)
[2021-08-11] MEDS: metroNIDAZOLE 500 MG TAB PO SCH ×2 (05:30→13:01)
[2021-08-11 08:35] LABS: Alanine Aminotransferase 9 units/L (7-56); Albumin 2.4 g/dL (3.9-5); Blood Urea Nitrogen 3 mg/dL (7-17); Calcium 8.1 mg/dL (8.4-10.2); Hemolysis Index 0
[2021-08-11 08:40] LABS: BUN/Creatinine Ratio 15
[2021-08-11] MEDS: INSULIN REGULAR, HUMAN 100 UNITS/1 ML SUB-Q SCH ×2 (08:54→12:29)
[2021-08-11 09:27] LABS: Hematocrit 30.3 % (30.3-42.9); Mean Corpuscular HGB Conc 33 % (30-34); Mean Corpuscular Volume 106 fl (79-97); Platelet Count 329 K/mm3 (140-440); Red Blood Count 2.85 M/mm3 (3.65-5.03)
[2021-08-11 09:31] LABS: Red Cell Distribution Width 21.5 % (13.2-15.2)
[2021-08-11] MEDS: prednisoLONE SOD PHOSPHATE 15 MG/5 ML ORAL LIQD PO SCH (09:36)
--- NOTE | 2021-08-11 10:07 | Progress Note ---
Assessment and Plan Cultures: Blood culture no growth so far A/P: 44-year-old female past medical history alcohol abuse now with #SIRS/sepsis: With leukocytosis, tachycardia. 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 metronidazole -Could DC on Levaquin 750mg q24h and metronidazole 500mg q8h for 2 weeks. Thank you for the consult, we will continue to follow. Raciel Brunner MD [facility] [place] ([facility]) O: [phone] F: [phone] Subjective Date of service: 08/11/21 Interval history: Afebrile, white count remains elevated at 28.6. No other acute change. Objective - Exam Narrative Exam: Physical Exam: Constitutional: Alert, cooperative. No acute distress Head, Ears, Nose: Normocephalic, atraumatic. External ears, nose normal Eyes: icterus Neck: Supple, no meningeal signs Oral: dentition fair, no thrush Cardiovascular: S1, S2 normal. Respiratory: Good air entry, clear to auscultation bilaterally GI: soft, distended Musculoskeletal: No pedal edema, no cyanosis. Skin: No rash or abscess Hem/Lymphatic: No palpable cervical or supraclavicular nodes. No lymphangitis Psych: Mood ok. Affect normal Neurological: Awake, alert, oriented. No gross abnormality - Constitutional Vitals: Vital Signs Temp Pulse Resp BP Pulse Ox 97.6 F 94 H 19 109/56 99 08/11/21 08:43 08/11/21 03:56 08/11/21 08:43 08/11/21 08:53 08/11/21 08:43 Temperature -Last 24 Hours Temperature 97.6 F Temperature 98.0 F Temperature 98.6 F Temperature 98.6 F Temperature 98.0 F Temperature 98.0 F - Labs CBC & Chem 7: 08/11/21 07:28 08/11/21 07:28 Labs: Abnormal lab results 08/10/21 08/11/21 08/11/21 Range/Units 21:35 07:28 07:28 WBC 28.6 H (4.5-11.0) K/mm3 RBC 2.85 L (3.65-5.03) M/mm3 Hgb 10.0 L (10.1-14.3) gm/dl MCV 106 H (79-97) fl MCH 35 H (28-32) pg RDW 21.5 H (13.2-15.2) % Sodium 125 L (137-145) mmol/L Chloride 92.7 L (98-107) mmol/L BUN 3 L (7-17) mg/dL Creatinine 0.2 L (0.6-1.2) mg/dL Glucose 151 H (65-100) mg/dL POC Glucose 119 H (70-105) mg/dL Calcium 8.1 L (8.4-10.2) mg/dL Total Bilirubin 7.30 H (0.1-1.2) mg/dL AST 67 H (5-40) units/L Alkaline Phosphatase 352 H (35-129) units/L Total Protein 6.1 L (6.3-8.2) g/dL Albumin 2.4 L (3.9-5) g/dL
[2021-08-11] MEDS: oxyCODONE /ACETAMINOPHEN 5-325MG TAB PO PRN (10:54)
[2021-08-11 11:12] VITALS: BP 112/70
--- NOTE | 2021-08-11 13:20 | Discharge Summary ---
Providers - Providers Date of Admission: 08/07/21 17:07 Date of discharge: 08/11/21 Attending physician: KRIS ELENA MD 08/07/21 18:54 Consult to Physician [CONS] Stat Comment: Consulting Provider: YRN AMOR Physician Instructions: Reason For Exam: porcalein gall bladder 08/07/21 18:55 Consult to Physician [CONS] Stat Comment: Consulting Provider: RESHMA LAI Physician Instructions: Reason For Exam: jaundice, alcoholic liver disease 08/08/21 14:11 Consult to Physician [CONS] Routine Comment: Consulting Provider: BRIDGET BRAN Physician Instructions: Reason For Exam: Antibiotic management Primary care physician: ROD STRAIGHTENER Hospitalization Reason for admission: decompensated cirrhosis Condition: Fair Hospital course: 45-year-old female with history of alcohol dependence who presented to the emergency room with abdominal pain and distention. She was admitted for acute alcoholic liver disease. CT of the abdomen pelvis showed grossly normal- appearing liver, moderate volume ascites and porcelain gallbladder. Abdominal MRI showed hepatomegaly with hepatic steatosis and probable cirrhosis, moderate to large amount of ascites and cholelithiasis with porcelain gallbladder. General surgery was consulted and did not recommend surgical intervention for gallbladder due to decompensated cirrhosis. Infectious disease was consulted and recommended empiric IV antibiotics for sepsis. Ultrasound-guided paracentesis was performed on 08/09 where 4.8 L of fluid was removed. Gastroenterology recommended prednisolone for probable alcoholic hepatitis. After administration of steroids AST began to improve. Once patient was stable she was discharged home with a 2-week course of oral antibiotics and steroids. She was counseled about alcohol cessation and advised to follow-up with GI within the next 2 weeks. Diuretics are not prescribed at time of discharge due to low blood pressures. Disposition: 30 STILL A PATIENT Final Discharge Diagnosis (Prints w/discharge instructions): Sepsis secondary to unknown source. Alcoholic liver disease. Decompensated hepatic cirrhosis. Possible alcoholic hepatitis. Hyperbilirubinemia. Elevated liver enzymes. Elevated ammonia. Moderate protein caloric malnutrition. Hyponatremia. Porcelain gallbladder. Coagulopathy. Hypocalcemia. Alcohol dependence Time spent for discharge: 40 minutes Core Measure Documentation - Palliative Care Palliative Care/ Comfort Measures: Not Applicable - Core Measures Any of the following diagnoses?: none Exam - Physical Exam Narrative exam: GENERAL: Well-developed well-nourished. In no acute distress. HEENT: Jaundice. NECK: Supple. CHEST/LUNGS: CTAB on room air HEART/CARDIOVASCULAR: RRR. No murmur, rubs or gallops appreciated. ABDOMEN: +BS. NT. Improvement in distended with increased vascularity. NEURO: No focal motor deficit. Follows all commands. MUSCULOSKELETAL: No joint effusion EXTREMITIES: No cyanosis, clubbing or edema. PSYCH: Cooperative. - Constitutional Vitals: Temp Pulse Resp BP Pulse Ox 97.6 F 81 19 112/70 99 08/11/21 08:43 08/11/21 07:30 08/11/21 08:43 08/11/21 11:11 08/11/21 08:43 Plan Activity: advance as tolerated Diet: low salt Care Plan Goals: Please make an appointment with your primary care doctor. Make sure to take all medications as they are prescribed for you to take. It is important that you quit drinking all alcohol at this moment to prevent worsening of your liver failure. At this time you should adopt a low-sodium diet. Please schedule an appointment with Dr. Lai (the steam powerplant supervisor) after discharge Follow up with: SUSU BLUE MD [Primary Care Provider] - 3-5 Days RESHMA LAI MD [Staff Physician] - 14 Days Forms: Work/School Release Form Prescriptions: metroNIDAZOLE [Flagyl TAB] 500 mg PO Q8HR 14 Days #42 tablet levoFLOXacin [Levaquin] 750 mg PO QDAY 14 Days #14 tablet prednisoLONE 15 ml PO QDAY 12 Days #210 ml
--- NOTE | 2021-08-11 18:35 | Gastroenterology Progress Note ---
Assessment and Plan . 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 - stable for dc from GI standpoint, will sign off, call if needed Subjective Date of service: 08/11/21 Interval history: - no GI complaints overnight Objective - Constitutional Vitals: Temp Pulse Resp BP Pulse Ox 97.6 F 81 19 112/70 99 08/11/21 08:43 08/11/21 07:30 08/11/21 08:43 08/11/21 11:11 08/11/21 08:43 General appearance: no acute distress - EENT Eyes: PERRL - Respiratory Respiratory: bilateral: CTA - Cardiovascular Rhythm: regular Heart Sounds: Present: S1 & S2 - Gastrointestinal General gastrointestinal: Present: soft, non-tender, non-distended - Labs CBC & Chem 7: 08/11/21 07:28 08/11/21 07:28 Labs: Laboratory Results - last 24 hr 08/10/21 08/11/21 08/11/21 21:35 07:28 07:28 WBC 28.6 H RBC 2.85 L Hgb 10.0 L Hct 30.3 MCV 106 H MCH 35 H MCHC 33 RDW 21.5 H Plt Count 329 Sodium 125 L Potassium 4.2 Chloride 92.7 L Carbon Dioxide 22 Anion Gap 15 BUN 3 L Creatinine 0.2 L Estimated GFR > 60 BUN/Creatinine Ratio 15 Glucose 151 H POC Glucose 119 H Calcium 8.1 L Total Bilirubin 7.30 H AST 67 H ALT 9 Alkaline Phosphatase 352 H Total Protein 6.1 L Albumin 2.4 L Albumin/Globulin Ratio 0.6
== END 2021-08-11 19:50 | disposition home or self-care (01) | DRG 872 ==
LOC: ED 12:20 → 4A 17:07
PROVIDERS: ADMIT Internal Medicine; ATTEND Student in an Organized Health Care Education/Training Program
DX: A41.9 Sepsis, unspecified organism (principal); E44.0 Moderate protein-calorie malnutrition; E87.1 Hypo-osmolality and hyponatremia; D68.9 Coagulation defect, unspecified; K70.30 Alcoholic cirrhosis of liver without ascites; K82.8 Other specified diseases of gallbladder; E83.51 Hypocalcemia; F10.20 Alcohol dependence, uncomplicated; K70.11 Alcoholic hepatitis with ascites
CPT/HCPCS: 36415; 49083; 74177; 74183; 80048; 80053; 80074; 80076; 80320; 81001; 81025; 82140; 82150; 82378; 82962; 83690; 83735; 84100; 84702; 85007; 85025; 85027; 85610; 86301; 86850; 86900; 86901; 87040; 87086; G0378; A9575; G0480; J0692; J1170; J2270; J2405; J2543; J7030; J7510; Q9967

== ENCOUNTER 2021-09-15 18:01 | Emergency (ER) | payer SELFPAY ==
[2021-09-15 21:15] LABS: Hematocrit 28.4 % (30.3-42.9); Hemoglobin 9.5 gm/dl (10.1-14.3); Mean Corpuscular HGB Conc 34 % (30-34); Mean Corpuscular Volume 109 fl (79-97); Platelet Count 279 K/mm3 (140-440); Red Cell Distribution Width 16.5 % (13.2-15.2)
[2021-09-15 21:39] LABS: Alanine Aminotransferase 29 units/L (7-56); Albumin 3.3 g/dL (3.9-5); Blood Urea Nitrogen 25 mg/dL (7-17); Calcium 8.6 mg/dL (8.4-10.2); Hemolysis Index 3
[2021-09-15 21:49] LABS: BUN/Creatinine Ratio 36
[2021-09-16] MEDS ORDERED: SODIUM CHLORIDE 0.9% 1000 ML 1,000 ML IV ONE (01:20)
--- NOTE | 2021-09-16 01:25 | Emergency Department Report ---
ED Abdominal Pain HPI - General Chief Complaint: Abdominal Pain Stated Complaint: UNABLE TO STAND OR MOVE (HEPATITIS) Time Seen by Provider: 09/16/21 01:04 Source: patient Mode of arrival: Wheelchair Limitations: Language Barrier - History of Present Illness Initial Comments: 45-year-old female with a recent diagnosis of alcoholic hepatitis in July 2021 who now presents with worsening abdominal distention and pain. No fever or chills reported. Patient reported that she used to drink about a bottle of wine on daily basis but has been drink since she was diagnosed with this alcoholic hepatitis. Patient was seen by gastroenterology today and was sent to the ER for lab evaluation. Pt also mentioned that because of the leg edema she was not able to put weight on. No other modifying or associated factors reported. MD Complaint: abdominal pain - Related Data Previous Rx's Medication Instructions Recorded Last Taken Type levoFLOXacin [Levaquin] 750 mg PO QDAY 14 Days #14 tablet 08/11/21 Unknown Rx metroNIDAZOLE [Flagyl TAB] 500 mg PO Q8HR 14 Days #42 tablet 08/11/21 Unknown Rx prednisoLONE 15 ml PO QDAY 12 Days #210 ml 08/11/21 Unknown Rx Furosemide [Lasix] 20 mg PO BID 30 Days #60 tablet NS 09/16/21 Unknown Rx Allergies Allergy/AdvReac Type Severity Reaction Status Date / Time No Known Allergies Allergy Verified 08/07/21 12:24 ED Review of Systems ROS: Stated complaint: UNABLE TO STAND OR MOVE (HEPATITIS) Other details as noted in HPI Comment: All other systems reviewed and negative Eyes: other (jundice ) Gastrointestinal: abdominal pain, nausea, other (distension). denies: vomiting, diarrhea, constipation ED Past Medical Hx - Past Medical History Hx Congestive Heart Failure: No Hx Diabetes: No Hx Asthma: No Hx COPD: No - Social History Smoking Status: Never Smoker - Medications Home Medications: Home Medications Medication Instructions Recorded Confirmed Last Taken Type levoFLOXacin [Levaquin] 750 mg PO QDAY 14 Days #14 tablet 08/11/21 Unknown Rx metroNIDAZOLE [Flagyl TAB] 500 mg PO Q8HR 14 Days #42 tablet 08/11/21 Unknown Rx prednisoLONE 15 ml PO QDAY 12 Days #210 ml 08/11/21 Unknown Rx Furosemide [Lasix] 20 mg PO BID 30 Days #60 tablet NS 09/16/21 Unknown Rx ED Physical Exam - General Limitations: Language Barrier General appearance: alert, in no apparent distress - Head Head exam: Present: normal inspection - Eye Eye exam: Present: other (jaundice ) Pupils: Present: other (jaundice ) - ENT ENT exam: Present: normal exam, mucous membranes dry - Neck Neck exam: Present: normal inspection - Respiratory Respiratory exam: Present: normal lung sounds bilaterally. Absent: respiratory distress, accessory muscle use - Cardiovascular Cardiovascular Exam: Present: regular rate, normal rhythm, normal heart sounds - GI/Abdominal GI/Abdominal exam: Present: soft, normal bowel sounds. Absent: distended, tenderness - Extremities Exam Extremities exam: Present: normal inspection, normal capillary refill, pedal edema (+2 bilaterally ). Absent: tenderness - Back Exam Back exam: Absent: tenderness - Neurological Exam Neurological exam: Present: alert, oriented X3 - Psychiatric Psychiatric exam: Present: normal affect, normal mood - Skin Skin exam: Present: cyanosis ED Course Vital Signs 09/15/21 09/15/21 09/15/21 20:13 20:20 23:59 Temperature 98.5 F Pulse Rate 117 H 117 H Respiratory 19 Rate Blood Pressure Blood Pressure 128/86 [Right] O2 Sat by Pulse 98 98 Oximetry 09/16/21 09/16/21 09/16/21 00:00 00:15 00:31 Temperature Pulse Rate 116 H 114 H 115 H Respiratory 32 H 27 H 27 H Rate Blood Pressure 122/78 122/78 Blood Pressure [Right] O2 Sat by Pulse 100 99 99 Oximetry 09/16/21 09/16/21 09/16/21 00:45 01:01 01:15 Temperature Pulse Rate 116 H 115 H 117 H Respiratory 30 H 34 H 25 H Rate Blood Pressure 122/78 122/78 122/78 Blood Pressure [Right] O2 Sat by Pulse 98 98 98 Oximetry 09/16/21 09/16/21 09/16/21 01:30 01:47 02:01 Temperature Pulse Rate 117 H 115 H 117 H Respiratory 26 H 24 22 Rate Blood Pressure 122/78 122/78 122/81 Blood Pressure [Right] O2 Sat by Pulse 98 98 97 Oximetry 09/16/21 09/16/21 09/16/21 02:15 02:31 02:45 Temperature Pulse Rate 118 H 117 H 116 H Respiratory 29 H 33 H 28 H Rate Blood Pressure 122/81 122/81 122/78 Blood Pressure [Right] O2 Sat by Pulse 98 97 98 Oximetry 09/16/21 09/16/21 09/16/21 03:01 03:15 03:31 Temperature Pulse Rate 117 H 118 H 119 H Respiratory 34 H 28 H 33 H Rate Blood Pressure 122/78 122/78 122/78 Blood Pressure [Right] O2 Sat by Pulse 96 97 96 Oximetry 09/16/21 09/16/21 03:45 04:01 Temperature Pulse Rate 116 H 118 H Respiratory 22 33 H Rate Blood Pressure 113/71 113/71 Blood Pressure [Right] O2 Sat by Pulse 98 Oximetry ED Medical Decision Making - Lab Data Result diagrams: 09/15/21 21:01 09/15/21 21:01 - Radiology Data FINDINGS: LOWER CHEST: Small dependent left pleural effusion with associated passive atelectasis of the left lower lobe. Additional subsegmental atelectasis of the left lower lobe present. Mild cardiomegaly. Small pericardial effusion. LIVER: Nodular cirrhotic morphology of the liver is present. Hepatomegaly demonstrated stable. No focal lesions. GALLBLADDER / BILE DUCTS: Porcelain gallbladder. Biliary ducts grossly u nremarkable. SPLEEN: Stable appearance of the spleen, small splenic clefts are present. PANCREAS: No significant abnormality. ADRENALS: No significant abnormality. KIDNEYS/URETERS: No stones or hydronephrosis. No solid renal lesion. STOMACH / DUODENUM / SMALL BOWEL: The stomach, duodenum, and small bowel demonstrate no significant abnormality. No specific abnormality of the mesentery demonstrated. COLON: No significant abnormality. APPENDIX: Not identified PERITONEUM: Moderate to large volume ascites is noted within the abdomen and pelvis. LYMPH NODES: No significant adenopathy. AORTA / ARTERIES: No significant abnormality. IVC / VEINS: No significant abnormality. URINARY BLADDER: Bladder is moderately distended. REPRODUCTIVE ORGANS: No significant abnormality. SKELETAL SYSTEM: No significant abnormality. ADDITIONAL ABDOMINAL/PELVIC FINDINGS: None. IMPRESSION: 1. Cirrhotic morphology of the liver and hepatomegaly are present stable compared to prior study. Previously described nodular foci within the liver are not well appreciated in this phase of contrast. 2. Porcelain gallbladder. 3. New small dependent left pleural effusion. 4. Moderate distention of the urinary bladder. - Medical Decision Making abdominal pain with distension and recent diagnosis with alcoholic hepatitis -- will go ahead and order routine labs including imaging with CT abd/pel -- for further evaluation of the abdominal pain -- In the meantime with start ivf ns 1L bolus for hydration while waiting for the above -- Lab reviewed and noted with chronic hyponatremia and leukocytosis -- she also have elelvat alk phos 668 with, ASt 168 and ALT 29 and critically elevated t- bili 9.40 -- consistent with worsening liver cirrhosis-- no acute findings that could not be managed as outpatient-- pt reassured with close follow up with her PCP/Cirrhosis-- even with normal ammonia level-- Critical care attestation.: If time is entered above; I have spent that time in minutes in the direct care of this critically ill patient, excluding procedure time. ED Disposition Clinical Impression: Alcoholic cirrhosis of liver with ascites, Chronic hyponatremia, H/O leukocytosis, Pleural effusion associated with hepatic disorder, Leg edema, lef t, Leg edema, right Abdominal pain Qualifiers: Abdominal location: generalized Qualified Code(s): R10.84 - Generalized abdo jennifer pain Leukocytosis (leucocytosis) Qualifiers: Leukocytosis type: unspecified Qualified Code(s): D72.829 - Elevated white blood cell count, unspecified Disposition: 01 HOME / SELF CARE / HOMELESS Is pt being admited?: No Does the pt Need Aspirin: No Condition: Stable Instructions: Alcoholic Liver Disease, [id number], Abdominal Pain, Adult, [id number], Abdominal Pain (ED) Additional Instructions: Continue to stay away from alcohol drink as this could continue to worsen your symptoms Call and schedule a followup with your PCP/gastroenterology for outpatient treatment Please do not hesitate to call or return to emergency if your symptoms worsen Prescriptions: Furosemide [Lasix] 20 mg PO BID 30 Days #60 tablet NS Referrals: KAT BACA MD [Primary Care Provider] - 3-5 Days Time of Disposition: 03:58
--- NOTE | 2021-09-16 02:00 | Cat Scan Report ---
CT ABDOMEN AND PELVIS WITH CONTRAST INDICATION / CLINICAL INFORMATION: abdominal pain with ascities. TECHNIQUE: Axial CT images were obtained through the abdomen and pelvis after 100 cc Omnipaque [address] scans at this location are performed using CT dose reduction for ALARA by means of automated exposure control. COMPARISON: CT of abdomen and pelvis 08/07/2021 FINDINGS: LOWER CHEST: Small dependent left pleural effusion with associated passive atelectasis of the left lo wer lobe. Additional subsegmental atelectasis of the left lower lobe present. Mild cardiomegaly. Smal l pericardial effusion. LIVER: Nodular cirrhotic morphology of the liver is present. Hepatomegaly demonstrated stable. No foc al lesions. GALLBLADDER / BILE DUCTS: Porcelain gallbladder. Biliary ducts grossly unremarkable. SPLEEN: Stable appearance of the spleen, small splenic clefts are present. PANCREAS: No significant abnormality. ADRENALS: No significant abnormality. KIDNEYS/URETERS: No stones or hydronephrosis. No solid renal lesion. STOMACH / DUODENUM / SMALL BOWEL: The stomach, duodenum, and small bowel demonstrate no significant a bnormality. No specific abnormality of the mesentery demonstrated. COLON: No significant abnormality. APPENDIX: Not identified PERITONEUM: Moderate to large volume ascites is noted within the abdomen and pelvis. LYMPH NODES: No significant adenopathy. AORTA / ARTERIES: No significant abnormality. IVC / VEINS: No significant abnormality. URINARY BLADDER: Bladder is moderately distended. REPRODUCTIVE ORGANS: No significant abnormality. SKELETAL SYSTEM: No significant abnormality. ADDITIONAL ABDOMINAL/PELVIC FINDINGS: None. IMPRESSION: 1. Cirrhotic morphology of the liver and hepatomegaly are present stable compared to prior study. Pre viously described nodular foci within the liver are not well appreciated in this phase of contrast. 2. Porcelain gallbladder. 3. New small dependent left pleural effusion. 4. Moderate distention of the urinary bladder. Signer Name: Pavel Chin II, MD Signed: 09/16/2021 1:55 AM Workstation Name: [email or web address]
[2021-09-16 02:47] LABS: Hyaline Casts,Urine 1 /LPF
[2021-09-16 02:56] LABS: Bilirubin,Urine Negative (Negative); Blood,Urine Negative (Negative); Color,Urine Dark Yellow (Yellow)
[2021-09-16 04:04] VITALS: BP 113/71
== END 2021-09-16 06:53 | disposition home or self-care (01) ==
LOC: ED 18:01
DX: K70.31 Alcoholic cirrhosis of liver with ascites (principal); E87.1 Hypo-osmolality and hyponatremia; D72.829 Elevated white blood cell count, unspecified
CPT/HCPCS: 36415; 74177; 80053; 81001; 82140; 83690; 84703; 85027; 87086; 96360; 99284; J7030; Q9967